=== PATIENT | female | born 1930 | race Asian ===

== ENCOUNTER 2017-06-07 23:52 | Inpatient (IN) | payer OTHER, MEDICAID ==
[~2017-06-07] VITALS: Ht 149.9 cm; Wt 54.4 kg
[2017-06-07 23:52] VITALS: BP_SYST 137
[~2017-06-07 23:52] MED LIST: CALC1TAB23 PO; METO-304; PRO40 PO
--- NOTE | 2017-06-07 23:56 | NUR ---
Patient to ER bed 8 to gown for evaluation. Side rails up. Report given to Miriam MCKINNEY.
--- NOTE | 2017-06-08 00:01 | NUR ---
Patient brought to ER by family C/O upper abdominal pain 07/10 for 1 day with nausea and vomiting. Denies diarrhea/constipation, afebrile, tender abdomen with palpation, dry mucous membranes, AAOx3, no signs of acute distress.
--- NOTE | 2017-06-08 00:10 | NUR ---
# 20 gauge angiocath placed to right forearm. Use of asceptic technique. Opsite placed over site. Blood return noted. Flushed with 10 cc of normal saline. No evidence of infiltration noted. Patient tolerated well.
[2017-06-08] MEDS ORDERED: NACL 0.9% 1,000 ML IV ONE (00:39)
[2017-06-08] MEDS ORDERED: MAG HYDROX/AL HYDROX/SIMETH 30 ML, BELLADONNA ALKALOIDS/PHENOBARB 10 ML, LIDOCAINE VISC... PO ONE ×3 (00:45)
[2017-06-08] MEDS ORDERED: KETOROLAC TROMETHAMINE 30 MG VIAL IVP ONE (00:45)
[2017-06-08] MEDS ORDERED: ONDANSETRON HCL 4 MG/2 ML VIAL IVP ONE (00:45)
--- NOTE | 2017-06-08 00:50 | NUR ---
Circus Rider at bedside for blood draw. Patient identified x2.
--- NOTE | 2017-06-08 01:04 | NUR ---
Patient states "i cant pee now" and refuses I&O catheter at this time. aware.
--- NOTE | 2017-06-08 01:10 | NUR ---
Patient off the unit via gurney for CT scan.
[2017-06-08 01:11] LABS: BASOPHILS # (AUTO) 0.1 K/uL (0.0-0.2); BASOPHILS % (AUTO) 1.7 % (0.0-2.0); EOSINOPHILS # (AUTO) 0.1 K/uL (0.0-0.4); EOSINOPHILS % (AUTO) 2.2 % (0.0-4.0); HEMOGLOBIN 12.3 g/dL (12.0-16.0); LYMPHOCYTES # (AUTO) 0.6 K/uL (1.0-5.5); LYMPHOCYTES % (AUTO) 10.5 % (20.5-51.5); MEAN CORPUSCULAR HEMOGLOBIN 32 pg (27-31); MEAN CORPUSCULAR HGB CONC 33 % (32-36); MEAN CORPUSCULAR VOLUME 96 fL (79.0-98.0); MONOCYTES # (AUTO) 0.4 K/uL (0.0-1.0); MONOCYTES % (AUTO) 5.8 % (1.7-9.3); NEUTROPHILS # (AUTO) 4.9 K/uL (1.8-7.7); NEUTROPHILS % (AUTO) 79.8 % (40.0-70.0); PLATELET COUNT (AUTO) 133 K/uL (130-430); RED BLOOD CELL COUNT(AUTO) 3.85 MIL/uL (4.2-6.2); RED CELL DISTRIBUTION WIDTH 12.6 % (9.0-15.0); WHITE BLOOD COUNT (AUTO) 6.1 K/uL (4.8-10.8)
--- NOTE | 2017-06-08 01:24 | NUR ---
Returns to ER department from CT. Placed on vehicle monitor technician, blood pressure machine and pulse oximeter.
--- NOTE | 2017-06-08 01:26 | NUR ---
Medicated per MD orders. IVF infusing with no s/s of infiltration at this time. No adverse reaction noted.
[2017-06-08 01:48] LABS: ANION GAP 7 (5-15); CALCIUM 8.3 mg/dL (8.4-11.0); CHLORIDE 109 mmol/L (98-107); CREATININE 0.74 mg/dL (0.55-1.30); GLUCOSE 121 mg/dL (70-99); POTASSIUM 4.5 mmol/L (3.5-5.1); SODIUM SERUM 142 mmol/L (136-145); UREA NITROGEN, BLOOD 18 mg/dL (8-21)
[2017-06-08 01:52] LABS: ALANINE AMINOTRANSFERASE 30 U/L (12-78); ALBUMIN 3.5 g/dL (3.4-4.8); AMYLASE 128 U/L (0-100); ASPARTATE AMINOTRANSFERASE 41 U/L (10-37); LIPASE 245 U/L (73-393); TOTAL BILIRUBIN 0.8 mg/dL (0.0-1.0)
[2017-06-08 02:02] LABS: BILIRUBIN,URINE 1+ (NEGATIVE); BLOOD, URINE 2+ (NEGATIVE); CLARITY/URINE CLEAR (CLEAR); COLOR,URINE YELLOW (YELLOW); GLUCOSE,URINE NEGATIVE (NEGATIVE); KETONES,URINE 1+ (NEGATIVE); LEUKOCYTE ESTERASE ,URINE NEGATIVE (NEGATIVE); NITRITE, URINE NEGATIVE (NEGATIVE); PH,URINE 5.5 (5.0-8.0); PROTEIN URINE 1+ (NEGATIVE); UROBILINOGEN,URINE 0.2 (0.2-1.0)
[2017-06-08 02:16] LABS: BACTERIA,URINE MODERATE /HPF (None Seen); WBC,URINE 0-3 /HPF (0-3)
[2017-06-08 02:17] LABS: URINE AMORPHOUS URATE 1+ /HPF (None Seen)
[2017-06-08 02:18] LABS: MUCUS,URINE 2+ /LPF (None Seen)
--- NOTE | 2017-06-08 02:36 | NUR ---
Medication reconciliation completed with information provided by - daughter states "all meds are the same". Any prior medication reconciliation on file was reviewed and corrected.
--- NOTE | 2017-06-08 02:40 | NUR ---
Patient will be admitted to care of Dr Stockton. Admitted to [facility] IN unit. Will go to room 135. Belongings list completed. Summary report printed. Report will be given at bedside.
[2017-06-08] MEDS ORDERED: ONDANSETRON HCL 4 MG/2 ML VIAL IVP PRN (02:45)
[2017-06-08] MEDS ORDERED: KETOROLAC TROMETHAMINE 15 MG VIAL IVP PRN (02:45)
--- NOTE | 2017-06-08 02:46 | NUR ---
Transfer to [facility]. IV present no sign or symptom of infiltration.
[2017-06-08 02:55] VITALS: BP_SYST 126
--- NOTE | 2017-06-08 02:55 | NUR ---
Admission Note Received patient from ER with diagnosis of Gastroenteritis. Initial Plan of Care discussed-patient verbalized understanding. Oriented to room, call light, pain management and safety.
--- NOTE | 2017-06-08 03:00 | NUR ---
INITIAL NOTE PT. RECEIVED IN BED, AAOX4. NO S/S OF SOB OR DISTRESS AT THIS TIME. DENIES PAIN OR NAUSEA. VSS. 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 IV ACCESS NOTED TO RIGHT WRIST. NO REDNESS OR SWELLING TO THE SITE. WILL HANG AND INFUSE IVF ORDERED. PT. NOTED TO AMBULATE WITH STEADY GAIT. WALKED TO THE RESTROOM WITH ASSISTANCE FROM DENNIS SALOMON. PT VOIDED. ASSISTED BACK TO BED AND IN A COMFORTABLE POSITION. PROVIDED PT. WITH BLANKETS FOR COMFORT. SKIN INTACT. PLAN OF CARE HAS BEEN DISCUSSED WITH THE PT. ENCOURAGED CALL FOR ASSISTANCE USING CALL LIGHT. VERBALIZES UNDERSTANDING. WILL CONTINUE TO MONITOR FOR ANY CHANGES. SAFETY AND FALL PRECAUTIONS IN PLACE. CALL LIGHT IN REACH. BED ALARM ON.
[2017-06-08] MEDS: LR 1,000 ML IV SCH ×2 (03:11→13:23)
[2017-06-08 04:28] VITALS: BP_SYST 124
--- NOTE | 2017-06-08 04:38 | NUR ---
ROUNDS PT. RESTING IN BED WITH EYES CLOSED. CHEST RISE AND FALL NOTED. NO SIGNS OF ACUTE DISTRESS. WILL CONTINUE TO MONITOR FOR CHANGES. SAFETY AND FALL PRECAUTIONS IN PLACE. CALL LIGHT IN REACH.
--- NOTE | 2017-06-08 06:31 | NUR ---
CLOSING NOTE PT. RESTING IN BED WITH EYES CLOSED. CHEST RISE AND FALL NOTED. NO S/S OF SOB OR DISTRESS.NO FACIAL GRIMACING INDICATING PAIN. ALL NEEDS MET THIS SHIFT. SAFETY AND FALL PRECAUTIONS WERE MAINTAINED. WILL ENDORSE CARE TO AM NURSE. ALL LIGHT IN REACH.
--- NOTE | 2017-06-08 08:42 | NUR ---
OPENING NOTE RECEIVED REPORT FROM TOOTH CLERK RN. PATIENT RESTING COMFORTABLY. NO COMPLAINTS OF PAIN AT THIS TIME. PATIENT HAS NO NOTABLE SIGNS OF DISTRESS AT THIS TIME. PATIENTS BED IN LOWEST POSITION, CALL LIGHT WITHIN REACH, PATIENT BELONGINGS WITHIN REACH, AND SIDE RAILS ARE UP FOR SAFETY. WILL CONTINUE TO MONITOR PATIENT FOR CHANGES IN STATUS. PATIENT MORNING MEDICATIONS GIVEN. PATIENT WALKED TO RR, STEADY GAIT. ENCOURAGED TO CALL WHEN NEEDS ARISE.
[2017-06-08 08:54] VITALS: BP_SYST 130
[2017-06-08] MEDS: PANTOPRAZOLE SODIUM 40 MG TAB PO SCH (09:41)
[2017-06-08] MEDS: METOPROLOL SUCCINATE 25 MG TAB.SR.24H (TOPROL XL) PO SCH ×2 (09:41→21:19)
[2017-06-08] MEDS ORDERED: BISACODYL 10 MG/SUPPOSITORY RC PRN (11:15)
[2017-06-08] MEDS ORDERED: BISACODYL 10 MG/SUPPOSITORY RC ONE (11:15)
--- NOTE | 2017-06-08 11:18 | NUR ---
MD DR. MCKENNA AT BEDSIDE. PATIENT HAS DISTENDED ABDOMEN, COMPLAINTS OF PAIN AFTER EATING CLEAR LIQUID DIET. MD ORDERS. DULCOLAX SUPPOSITORY; SMALL BOWEL FOLLOW THROUGH; AND GI CONSULT. WE WILL KEEP PATIENT WITH CLEAR LIQUID DIET. WILL CONTINUE TO MONITOR PATIENT. PATIENTS BED IN LOWEST POSITION, CALL LIGHT WITHIN REACH, IV RUNNING PER MD ORDERS, AND SIDE RAILS ARE UP FOR COMFORT.
--- NOTE | 2017-06-08 11:56 | NUR ---
GI CONSULT: DR GRIMM Consult was called, RE: vomitting JEREMY Miranda
[2017-06-08] MEDS ORDERED: GASTROGRAFIN 120 ML ONE (12:23)
[2017-06-08 12:32] VITALS: BP_SYST 129
--- NOTE | 2017-06-08 13:05 | NUR ---
1200 NOTE PATIENT RESTING COMFORTABLY. NO COMPLAINTS OF PAIN AT THIS TIME. PATIENT HAS NO NOTABLE SIGNS OF DISTRESS AT THIS TIME. PATIENT GIVEN SUPPOSITORY FOR BOWEL MOVEMENT. CURRENTLY HAVING EXAM: SMALL BOWEL FOLLOW THROUGH. PATIENT ABLE TO AMBULATE TO BATHROOM. HER DAUGHTER CALLED AND GAVE INFORMATION REGARDING HOME MEDICATIONS. ENTERED INTO Blink for iPhone and Android BY RN. PATIENTS BED IN LOWEST POSITION, CALL LIGHT WITHIN REACH, PATIENT BELONGINGS WITHIN REACH, AND SIDE RAILS ARE UP FOR SAFETY. WILL CONTINUE TO MONITOR PATIENT FOR CHANGES IN STATUS.
[2017-06-08] MEDS ORDERED: METO25TA3 PO (15:21)
[2017-06-08] MEDS ORDERED: ALEN70TA51 PO (15:21)
[2017-06-08] MEDS ORDERED: ASPI-1063 PO (15:21)
[2017-06-08] MEDS ORDERED: MULT-1159 PO (15:21)
[2017-06-08] MEDS ORDERED: CALC1TAB3 PO (15:21)
[2017-06-08] MEDS ORDERED: POTA-118 PO (15:21)
--- NOTE | 2017-06-08 15:23 | NUR ---
MD CALL/1400 NOTE PATIENT RESTING COMFORTABLY. NO COMPLAINTS OF PAIN AT THIS TIME. PATIENT HAS HAD RELIEF AFTER BOWEL MOVEMENT, SUPPOSITORY RELIEVED STOOL. PATIENT CURRENTLY HAVING SMALL BOWEL FOLLOW THROUGH. SPOKE WITH DR. GRIMM REGARDING PATIENT STATUS AND UPDATE REGARDING CONSULTATION. STATES, PLEASE HAVE PATIENT REMAIN ON CLEAR LIQUIDS. HE WILL SEE THE PATIENT TOMORROW 06/09/17. PATIENTS BED IN LOWEST POSITION, CALL LIGHT WITHIN REACH, PATIENT BELONGINGS WITHIN REACH, AND SIDE RAILS ARE UP FOR SAFETY. WILL CONTINUE TO MONITOR PATIENT FOR CHANGES IN STATUS.
[2017-06-08 16:10] VITALS: BP_SYST 132
--- NOTE | 2017-06-08 16:16 | NUR ---
1600 NOTE PATIENT RESTING COMFORTABLY. NO COMPLAINTS OF PAIN AT THIS TIME. PATIENT HAS NO NOTABLE SIGNS OF DISTRESS AT THIS TIME. PATIENT GIVEN SUPPOSITORY FOR BOWEL MOVEMENT. CURRENTLY HAVING EXAM: SMALL BOWEL FOLLOW THROUGH. PATIENT ABLE TO AMBULATE TO BATHROOM. PATIENT DECREASE PAIN ASSOCIATED WITH PASSAGE OF STOOL. PATIENTS BED IN LOWEST POSITION, CALL LIGHT WITHIN REACH, PATIENT BELONGINGS WITHIN REACH, AND SIDE RAILS ARE UP FOR SAFETY. WILL CONTINUE TO MONITOR PATIENT FOR CHANGES IN STATUS.
--- NOTE | 2017-06-08 17:52 | NUR ---
1800/CLOSING NOTE AWAITING TO GIVE REPORT TO MANUFACTURING ENGINEER MACHINING NURSE. PATIENT RESTING COMFORTABLY. NO COMPLAINTS OF PAIN AT THIS TIME. PATIENT HAS NO NOTABLE SIGNS OF DISTRESS AT THIS TIME. PATIENT GIVEN SUPPOSITORY FOR BOWEL MOVEMENT. PATIENT HAS HAD SMALL BOWEL FOLLOW THROUGH, TO BE SEEN BY GI TOMORROW 06/09/17. PATIENT ABLE TO AMBULATE TO BATHROOM. PATIENT DECREASE PAIN ASSOCIATED WITH PASSAGE OF STOOL. PATIENTS BED IN LOWEST POSITION, CALL LIGHT WITHIN REACH, PATIENT BELONGINGS WITHIN REACH, AND SIDE RAILS ARE UP FOR SAFETY. WILL CONTINUE TO MONITOR PATIENT FOR CHANGES IN STATUS.
[2017-06-08 20:30] VITALS: BP_SYST 132
--- NOTE | 2017-06-08 21:15 | NUR ---
Patient awake assist out of bed to rest room on room air 02 SAT 96 % chest movement shallow also symmetrical unlabored .
--- NOTE | 2017-06-08 23:58 | NUR ---
Hourly Rounding patient resting verbally responsive , encourage position change skin dry warm call waters with patient .
--- NOTE | 2017-06-09 00:01 | NUR ---
TOPROLOL XL 25 MG PO administer as ordered for HYPERTENSION , patient noted to have a pacemaker in left chest chest wall / .
[2017-06-09 00:23] VITALS: BP_SYST 118
--- NOTE | 2017-06-09 00:43 | NUR ---
Patient awake assist out of bed to rest room skin dry warm no SOB , verbally indicative , fall measures implemented frequent monitor for safety / .
--- NOTE | 2017-06-09 01:47 | NUR ---
Patient resting respirations regular also unlabored bed to low position safety measures effective / .
[2017-06-09 04:08] VITALS: BP_SYST 142
--- NOTE | 2017-06-09 05:28 | NUR ---
Hourly Rounding Patient resting is verbally responsive , bed to low position call waters with PT , no complaints made assist as needed / .
[2017-06-09] MEDS: LR 1,000 ML IV SCH ×2 (06:33→09:35)
[2017-06-09 07:01] LABS: BASOPHILS % (AUTO) 0.6 % (0.0-2.0); EOSINOPHILS # (AUTO) 0.2 K/uL (0.0-0.4); HEMATOCRIT 35.6 % (36-48); HEMOGLOBIN 11.7 g/dL (12.0-16.0); LYMPHOCYTES # (AUTO) 0.9 K/uL (1.0-5.5); LYMPHOCYTES % (AUTO) 22.4 % (20.5-51.5); MEAN CORPUSCULAR HEMOGLOBIN 32 pg (27-31); MEAN CORPUSCULAR HGB CONC 33 % (32-36); MEAN CORPUSCULAR VOLUME 97 fL (79.0-98.0); MONOCYTES # (AUTO) 0.4 K/uL (0.0-1.0); MONOCYTES % (AUTO) 9.4 % (1.7-9.3); NEUTROPHILS # (AUTO) 2.3 K/uL (1.8-7.7); NEUTROPHILS % (AUTO) 62.6 % (40.0-70.0); PLATELET COUNT (AUTO) 105 K/uL (130-430); RED BLOOD CELL COUNT(AUTO) 3.67 MIL/uL (4.2-6.2); RED CELL DISTRIBUTION WIDTH 12.8 % (9.0-15.0)
[2017-06-09 07:06] LABS: WHITE BLOOD COUNT (AUTO) 3.8 K/uL (4.8-10.8)
[2017-06-09 07:14] LABS: ALANINE AMINOTRANSFERASE 32 U/L (12-78); ALBUMIN 2.9 g/dL (3.4-4.8); ANION GAP 8 (5-15); ASPARTATE AMINOTRANSFERASE 48 U/L (10-37); CALCIUM 7.4 mg/dL (8.4-11.0); CHLORIDE 113 mmol/L (98-107); CREATININE 0.91 mg/dL (0.55-1.30); GLUCOSE 78 mg/dL (70-99); POTASSIUM 3.6 mmol/L (3.5-5.1); SODIUM SERUM 145 mmol/L (136-145); TOTAL BILIRUBIN 0.9 mg/dL (0.0-1.0); UREA NITROGEN, BLOOD 17 mg/dL (8-21)
--- NOTE | 2017-06-09 08:12 | NUR ---
OPENING NOTE/0800: RECEIVED REPORT FROM SCRAP WHEELER NURSE. PATIENT RESTING COMFORTABLY. PATIENT HAS NO NOTABLE SIGNS OF DISTRESS AT THIS TIME. PATIENT IS ALERT AND ORIENTED. PATIENTS BED IN LOWEST POSITION, CALL LIGHT WITHIN REACH, AND SIDE RAILS ARE UP FOR SAFETY. PATIENT AMBULATES STEADILY TO BATHROOM. REFUSES IV FLUIDS AT THIS TIME. WILL CONTINUE TO MONITOR PATIENT FOR CHANGES IN STATUS. PATIENT ENCOURAGED TO CALL WHEN NEEDS ARISE.
[2017-06-09] MEDS: METOPROLOL SUCCINATE 25 MG TAB.SR.24H (TOPROL XL) PO SCH (09:41)
[2017-06-09] MEDS: PANTOPRAZOLE SODIUM 40 MG TAB PO SCH (09:41)
--- NOTE | 2017-06-09 10:55 | NUR ---
1000 NOTE: PATIENT RESTING COMFORTABLY. PATIENT HAS NO NOTABLE SIGNS OF DISTRESS AT THIS TIME. PATIENT IS ALERT AND ORIENTED. PATIENT SEEN BY DR. MCKENNA, STATES SHE FEELS BETTER, AND WOULD LIKE REAL FOOD FOR LUNCH. ORDERS PLACED BY MD FOR [facility] SOFT DIET LUNCH, AND OKAY TO DISCHARGE IF TOLERATED. PATIENT IV FLUIDS DISCONTINUED. WILL CALL FAMILY REGARDING POSSIBLE DISCHARGE. PATIENTS BED IN LOWEST POSITION, CALL LIGHT WITHIN REACH, AND SIDE RAILS ARE UP FOR SAFETY. PATIENT AMBULATES STEADILY TO BATHROOM. WILL CONTINUE TO MONITOR PATIENT FOR CHANGES IN STATUS. PATIENT ENCOURAGED TO CALL WHEN NEEDS ARISE.
--- NOTE | 2017-06-09 12:34 | NUR ---
NOTE SPOKE WITH FAMILY, GRANDSON, EMILIANO REGARDING POSSIBLE DISCHARGE. FAMILY WILL NOT BE AVAILABLE TO TAKE PATIENT HOME UNTIL 1430.
--- NOTE | 2017-06-09 12:40 | NUR ---
1200 NOTE: PATIENT RESTING COMFORTABLY. PATIENT HAS NO NOTABLE SIGNS OF DISTRESS AT THIS TIME. PATIENT HAS HAD LUNCH, TOLERATED WELL. CALLED FAMILY REGARDING POSSIBLE DISCHARGE, THEY WILL BE AVAILABLE AFTER 1430 TO PICK PATIENT UP. PATIENTS BED IN LOWEST POSITION, CALL LIGHT WITHIN REACH, AND SIDE RAILS ARE UP FOR SAFETY. PATIENT AMBULATES STEADILY TO BATHROOM. WILL CONTINUE TO MONITOR PATIENT FOR CHANGES IN STATUS. PATIENT ENCOURAGED TO CALL WHEN NEEDS ARISE.
[2017-06-09 13:07] VITALS: BP_SYST 144
[2017-06-09 14:30] VITALS: BP_SYST 144
--- NOTE | 2017-06-09 14:55 | NUR ---
D/C Patient Patient given medication reconciliation form and D/C instructions. Exit Care provided. Patient verbalized understanding. MD discussed with patient the results and treatment provided. Ambulatory with steady gait for discharge to home. Patient in stable condition, ID band removed. IV catheter removed, intact and dressing applied, no active bleeding. Rx of given. All belongings sent with patient. Patient transport provided by patient family in personal vehicle.
--- NOTE | 2017-06-16 12:04 | NUR ---
Discharge Follow Up Phone Calls: Electrical Helper called and left voice mails for pt ([phone]) on 06/11/17, 06/13/17, and 06/16/17. Electrical Helper contact information was provided and pt was encouraged to call back with any needs or concerns. Electrical Helper will continue to remain available for pt to call back, but no further follow up phone calls will be made at this time.
== END 2017-06-09 14:55 | disposition home or self-care (01) | DRG 389 ==
LOC: SED 23:52 → SMU 06-08 02:30
PROVIDERS: ADMIT Internal Medicine; ATTEND Internal Medicine
DX: K56.41 Fecal impaction (principal); E44.0 Moderate protein-calorie malnutrition; I48.2 Chronic atrial fibrillation; E86.0 Dehydration; I10 Essential (primary) hypertension; Z95.0 Presence of cardiac pacemaker; Z90.49 Acquired absence of other specified parts of digestive tract; Z79.899 Other long term (current) drug therapy
CPT/HCPCS: 36415; 74250-TC; 80053; 81000-TC; 82150-TC; 83690-TC; 85025; 93005; 96361; 96374; 96375; 99285; J1885; J2001; J2405; J7030; J7120; Q9963

== ENCOUNTER 2018-05-13 16:27 | Outpatient (CLI) | payer OTHER, MEDICAID ==
[~2018-05-13 16:27] MED LIST changes: +ALEN70TA51 PO; -CALC1TAB23 PO; +CALC1TAB3 PO; -METO-304; +MULT-1159 PO; -PRO40 PO; +metoprolol PO
[2018-05-13 16:52] LABS: BASOPHILS % (AUTO) 0.8 % (0.0-2.0); EOSINOPHILS # (AUTO) 0.2 K/uL (0.0-0.4); EOSINOPHILS % (AUTO) 6.4 % (0.0-4.0); HEMATOCRIT 37.1 % (36-48); HEMOGLOBIN 12.5 g/dL (12.0-16.0); LYMPHOCYTES % (AUTO) 27.1 % (20.5-51.5); MEAN CORPUSCULAR HEMOGLOBIN 33 pg (27-31); MEAN CORPUSCULAR HGB CONC 34 % (32-36); MEAN CORPUSCULAR VOLUME 98 fL (79.0-98.0); MONOCYTES # (AUTO) 0.4 K/uL (0.0-1.0); MONOCYTES % (AUTO) 11.5 % (1.7-9.3); NEUTROPHILS # (AUTO) 2.1 K/uL (1.8-7.7); NEUTROPHILS % (AUTO) 54.2 % (40.0-70.0); RED BLOOD CELL COUNT(AUTO) 3.79 MIL/uL (4.2-6.2); RED CELL DISTRIBUTION WIDTH 13.6 % (9.0-15.0); WHITE BLOOD COUNT (AUTO) 3.7 K/uL (4.8-10.8)
[2018-05-13 17:09] LABS: PLATELET COUNT (AUTO) 126 K/uL (130-430)
[2018-05-13 17:26] LABS: ANION GAP 5 (5-15); CALCIUM 9.1 mg/dL (8.4-11.0); CHLORIDE 106 mmol/L (98-107); CREATININE 1.04 mg/dL (0.55-1.30); GLUCOSE 82 mg/dL (70-99); POTASSIUM 5.2 mmol/L (3.5-5.1); SODIUM SERUM 140 mmol/L (136-145); UREA NITROGEN, BLOOD 22 mg/dL (8-21)
[2018-05-13 17:41] LABS: ALANINE AMINOTRANSFERASE 27 U/L (12-78); ALBUMIN 3.5 g/dL (3.4-4.8); ASPARTATE AMINOTRANSFERASE 41 U/L (10-37); THYROID STIMULATING HORMONE 3.42 uIu/mL (0.34-4.82); TOTAL BILIRUBIN 0.6 mg/dL (0.0-1.0)
== END 2018-05-13 18:38 | disposition home or self-care (01) ==
LOC: SLB 16:27
PROVIDERS: ATTEND Internal Medicine
DX: I11.0 Hypertensive heart disease with heart failure (principal); I50.9 Heart failure, unspecified; E03.9 Hypothyroidism, unspecified
CPT/HCPCS: 36415; 80053; 84443-TC; 85025

== ENCOUNTER 2018-11-17 09:08 | Inpatient (IN) | payer OTHER, MEDICAID ==
[~2018-11-17] VITALS: Ht 149.9 cm; Wt 54.4 kg
[2018-11-17 09:10] VITALS: BP_SYST 121
[2018-11-17] MEDS ORDERED: MORPHINE 4 MG/ML INJ. SYRINGE IVP ONE (09:45)
[2018-11-17] MEDS ORDERED: ASPIRIN 81 MG TAB.CHEW PO ONE (09:45)
[2018-11-17 09:56] LABS: BASOPHILS % (AUTO) 0.3 % (0.0-2.0); EOSINOPHILS # (AUTO) 0.3 K/uL (0.0-0.4); EOSINOPHILS % (AUTO) 6.9 % (0.0-4.0); HEMATOCRIT 37.6 % (36-48); HEMOGLOBIN 12.2 g/dL (12.0-16.0); LYMPHOCYTES # (AUTO) 0.7 K/uL (1.0-5.5); LYMPHOCYTES % (AUTO) 14.4 % (20.5-51.5); MEAN CORPUSCULAR HEMOGLOBIN 32 pg (27-31); MEAN CORPUSCULAR HGB CONC 33 % (32-36); MEAN CORPUSCULAR VOLUME 99 fL (79.0-98.0); MONOCYTES # (AUTO) 0.3 K/uL (0.0-1.0); MONOCYTES % (AUTO) 6.3 % (1.7-9.3); NEUTROPHILS # (AUTO) 3.5 K/uL (1.8-7.7); NEUTROPHILS % (AUTO) 72.1 % (40.0-70.0); PLATELET COUNT (AUTO) 101 K/uL (130-430); RED BLOOD CELL COUNT(AUTO) 3.81 MIL/uL (4.2-6.2); RED CELL DISTRIBUTION WIDTH 13.8 % (9.0-15.0); WHITE BLOOD COUNT (AUTO) 4.8 K/uL (4.8-10.8)
[2018-11-17 10:05] LABS: ANION GAP 9 (5-15); CALCIUM 8.6 mg/dL (8.4-11.0); CHLORIDE 108 mmol/L (98-107); CREATININE 0.83 mg/dL (0.55-1.30); GLUCOSE 98 mg/dL (70-99); SODIUM SERUM 144 mmol/L (136-145); UREA NITROGEN, BLOOD 20 mg/dL (8-21)
[2018-11-17] MEDS ORDERED: LEVO25TA7 PO (10:06)
[2018-11-17] MEDS ORDERED: CHOL20004 PO (10:06)
[2018-11-17] MEDS ORDERED: CARV6.2554 PO (10:06)
[2018-11-17 10:14] LABS: ALANINE AMINOTRANSFERASE 34 U/L (12-78); ALBUMIN 3.4 g/dL (3.4-4.8); ASPARTATE AMINOTRANSFERASE 56 U/L (10-37); TOTAL BILIRUBIN 1.1 mg/dL (0.0-1.0)
[2018-11-17 11:00] VITALS: BP_SYST 129
[2018-11-17 11:21] VITALS: BP_SYST 119
[2018-11-17] MEDS: ONDANSETRON HCL 4 MG/2 ML VIAL IVP PRN ×2 (13:20→16:56)
[2018-11-17] MEDS ORDERED: KCL 20 mEq in D5/0.45NS 1000mL 1,000 ML IV SCH (15:00)
[2018-11-17 16:00] VITALS: BP_SYST 135
[2018-11-17] MEDS: MECLIZINE HCL 25 MG TABLET (ANITVERT) PO SCH ×2 (16:50→20:18)
[2018-11-17] MEDS: CARVEDILOL 6.25 MG TABLET (COREG) PO SCH (20:18)
[2018-11-17 20:20] VITALS: BP_SYST 122
[2018-11-18 00:16] VITALS: BP_SYST 120
[2018-11-18] MEDS: LEVOTHYROXINE SODIUM 0.025 MG TABLET PO SCH (06:19)
[2018-11-18 07:30] LABS: ANION GAP 7 (5-15); CALCIUM 7.7 mg/dL (8.4-11.0); CHLORIDE 109 mmol/L (98-107); CREATININE 0.83 mg/dL (0.55-1.30); GLUCOSE 85 mg/dL (70-99); POTASSIUM 3.8 mmol/L (3.5-5.1); SODIUM SERUM 143 mmol/L (136-145); UREA NITROGEN, BLOOD 20 mg/dL (8-21)
[2018-11-18 07:44] LABS: ALANINE AMINOTRANSFERASE 31 U/L (12-78); ALBUMIN 2.7 g/dL (3.4-4.8); ASPARTATE AMINOTRANSFERASE 63 U/L (10-37); THYROID STIMULATING HORMONE 1.93 uIu/mL (0.36-3.74); TOTAL BILIRUBIN 0.9 mg/dL (0.0-1.0)
[2018-11-18 08:06] VITALS: BP_SYST 111; BP_SYST 114
[2018-11-18 08:16] LABS: BASOPHILS % (AUTO) 0.7 % (0.0-2.0); EOSINOPHILS # (AUTO) 0.2 K/uL (0.0-0.4); EOSINOPHILS % (AUTO) 6.6 % (0.0-4.0); HEMATOCRIT 32.5 % (36-48); HEMOGLOBIN 10.7 g/dL (12.0-16.0); LYMPHOCYTES # (AUTO) 1.1 K/uL (1.0-5.5); LYMPHOCYTES % (AUTO) 32.6 % (20.5-51.5); MEAN CORPUSCULAR HEMOGLOBIN 32 pg (27-31); MEAN CORPUSCULAR HGB CONC 33 % (32-36); MEAN CORPUSCULAR VOLUME 98 fL (79.0-98.0); MONOCYTES # (AUTO) 0.5 K/uL (0.0-1.0); MONOCYTES % (AUTO) 13.2 % (1.7-9.3); NEUTROPHILS # (AUTO) 1.7 K/uL (1.8-7.7); NEUTROPHILS % (AUTO) 46.9 % (40.0-70.0); RED BLOOD CELL COUNT(AUTO) 3.31 MIL/uL (4.2-6.2); RED CELL DISTRIBUTION WIDTH 13.6 % (9.0-15.0)
[2018-11-18 08:20] LABS: WHITE BLOOD COUNT (AUTO) 3.5 K/uL (4.8-10.8)
[2018-11-18] MEDS: MECLIZINE HCL 25 MG TABLET (ANITVERT) PO SCH ×3 (09:14→22:15)
[2018-11-18] MEDS: CARVEDILOL 6.25 MG TABLET (COREG) PO SCH ×2 (09:15→22:15)
[2018-11-18 09:43] LABS: CHOLESTEROL 139 mg/dL (<200); HDL CHOLESTEROL 61 mg/dL (>55); LDL CHOLESTEROL 68 mg/dL (<100); PLATELET COUNT (AUTO) 94 K/uL (130-430); TRIGLYCERIDES 50 mg/dL (30-150)
[2018-11-18 12:01] VITALS: BP_SYST 101
[2018-11-18 16:18] VITALS: BP_SYST 115
[2018-11-18] MEDS: RIVAROXABAN 15 MG TABLET PO SCH (18:09)
[2018-11-18 20:00] VITALS: BP_SYST 139
[2018-11-19 01:21] VITALS: BP_SYST 131
[2018-11-19] MEDS: LEVOTHYROXINE SODIUM 0.025 MG TABLET PO SCH (05:55)
[2018-11-19 06:53] LABS: ANION GAP 10 (5-15); CALCIUM 7.9 mg/dL (8.4-11.0); CHLORIDE 109 mmol/L (98-107); CREATININE 0.94 mg/dL (0.55-1.30); GLUCOSE 92 mg/dL (70-99); POTASSIUM 4.1 mmol/L (3.5-5.1); SODIUM SERUM 143 mmol/L (136-145); UREA NITROGEN, BLOOD 22 mg/dL (8-21)
[2018-11-19 06:54] LABS: BASOPHILS % (AUTO) 0.7 % (0.0-2.0); EOSINOPHILS # (AUTO) 0.4 K/uL (0.0-0.4); EOSINOPHILS % (AUTO) 8.5 % (0.0-4.0); HEMATOCRIT 36.6 % (36-48); HEMOGLOBIN 12.3 g/dL (12.0-16.0); LYMPHOCYTES # (AUTO) 1.1 K/uL (1.0-5.5); LYMPHOCYTES % (AUTO) 22.7 % (20.5-51.5); MEAN CORPUSCULAR HEMOGLOBIN 33 pg (27-31); MEAN CORPUSCULAR HGB CONC 34 % (32-36); MEAN CORPUSCULAR VOLUME 98 fL (79.0-98.0); MONOCYTES # (AUTO) 0.5 K/uL (0.0-1.0); MONOCYTES % (AUTO) 9.9 % (1.7-9.3); NEUTROPHILS % (AUTO) 58.2 % (40.0-70.0); PLATELET COUNT (AUTO) 99 K/uL (130-430); RED BLOOD CELL COUNT(AUTO) 3.76 MIL/uL (4.2-6.2); RED CELL DISTRIBUTION WIDTH 13.2 % (9.0-15.0)
[2018-11-19 07:02] LABS: ALANINE AMINOTRANSFERASE 34 U/L (12-78); ALBUMIN 2.9 g/dL (3.4-4.8); ASPARTATE AMINOTRANSFERASE 61 U/L (10-37); TOTAL BILIRUBIN 0.8 mg/dL (0.0-1.0)
[2018-11-19 08:20] VITALS: BP_SYST 145
[2018-11-19] MEDS: MECLIZINE HCL 25 MG TABLET (ANITVERT) PO SCH ×2 (08:56→15:04)
[2018-11-19] MEDS: CARVEDILOL 6.25 MG TABLET (COREG) PO SCH (08:57)
[2018-11-19] MEDS ORDERED: FUROSEMIDE 20 MG TABLET PO SCH (09:00)
[2018-11-19] MEDS ORDERED: ASPIRIN 81 MG TAB.CHEW PO SCH (09:00)
[2018-11-19 12:00] VITALS: BP_SYST 124
[2018-11-19] MEDS ORDERED: ASPI-1153 PO (15:44)
[2018-11-19] MEDS ORDERED: FURO-150 PO (15:45)
[2018-11-19] MEDS ORDERED: RIVA15TA PO (15:46)
[2018-11-19 15:54] VITALS: BP_SYST 124
[2018-11-19] MEDS: RIVAROXABAN 15 MG TABLET PO SCH (15:57)
[2018-11-19 16:00] VITALS: BP_SYST 153
== END 2018-11-19 19:10 | disposition home or self-care (01) | DRG 280 ==
LOC: SED 09:08 → STU 10:39
PROVIDERS: ADMIT Family Medicine; ATTEND Family Medicine
DX: I21.4 Non-ST elevation (NSTEMI) myocardial infarction (principal); E43 Unspecified severe protein-calorie malnutrition; I42.0 Dilated cardiomyopathy; I50.22 Chronic systolic (congestive) heart failure; D68.59 Other primary thrombophilia; I48.2 Chronic atrial fibrillation; E03.9 Hypothyroidism, unspecified; I25.10 Atherosclerotic heart disease of native coronary artery without angina pectoris; I11.0 Hypertensive heart disease with heart failure; F03.90 Unspecified dementia, unspecified severity, without behavioral disturbance, psychotic disturbance, mood disturbance, and anxiety; I08.1 Rheumatic disorders of both mitral and tricuspid valves; Z90.49 Acquired absence of other specified parts of digestive tract; Z95.0 Presence of cardiac pacemaker; Z79.899 Other long term (current) drug therapy; Z79.82 Long term (current) use of aspirin; Z79.01 Long term (current) use of anticoagulants; Z68.24 Body mass index [BMI] 24.0-24.9, adult
CPT/HCPCS: 36415; 70450-TC; 71045; 80053; 80061; 83735-TC; 83880; 84443-TC; 84484; 85025; 90656; 93005; 96374; 99285; G0378; J2270; J2405; J8597

== ENCOUNTER 2019-01-30 14:35 | Inpatient (IN) | payer OTHER, MEDICAID ==
[~2019-01-30] VITALS: Ht 149.9 cm; Wt 50.0 kg
[~2019-01-30 14:35] MED LIST changes: -ALEN70TA51 PO; +ASPI-1153 PO; -CALC1TAB3 PO; +CARV6.2554 PO; +CHOL20004 PO; +FURO-150 PO; +LEVO25TA7 PO; +RIVA15TA PO
[2019-01-30 15:17] VITALS: BP_SYST 121
[2019-01-30] MEDS ORDERED: NACL 0.9% 1,000 ML IV ONE (15:29)
[2019-01-30] MEDS ORDERED: MORPHINE 4 MG/ML INJ. SYRINGE IVP ONE (15:30)
[2019-01-30] MEDS ORDERED: COR6.25 PO (15:34)
[2019-01-30] MEDS ORDERED: CYAN100010 PO (15:34)
[2019-01-30] MEDS ORDERED: VITD2000 PO (15:34)
[2019-01-30] MEDS ORDERED: MULT-1200 PO (15:34)
[2019-01-30] MEDS ORDERED: ALEN10TA6 PO (15:34)
[2019-01-30] MEDS ORDERED: CA C-2 PO (15:34)
[2019-01-30] MEDS ORDERED: FURO-150 PO (15:34)
[2019-01-30] MEDS ORDERED: RIVA10TA PO (15:34)
[2019-01-30] MEDS ORDERED: LEVO25TA2 PO (15:34)
[2019-01-30] MEDS ORDERED: FUROSEMIDE 40 MG/4 ML VIAL IVP ONE (15:45)
[2019-01-30 17:21] LABS: ANION GAP 9 (5-15); CALCIUM 8.9 mg/dL (8.4-11.0); CHLORIDE 107 mmol/L (98-107); CREATININE 0.79 mg/dL (0.55-1.30); GLUCOSE 73 mg/dL (70-99); POTASSIUM 3.9 mmol/L (3.5-5.1); SODIUM SERUM 140 mmol/L (136-145); UREA NITROGEN, BLOOD 17 mg/dL (8-21)
[2019-01-30 17:22] LABS: INR 0.9 (0.8-1.2); PROTHROMBIN TIME 9.7 SECS (9.5-12.5)
[2019-01-30 17:27] LABS: ALANINE AMINOTRANSFERASE 51 U/L (12-78); ALBUMIN 3.6 g/dL (3.4-4.8); AMYLASE 111 U/L (0-100); ASPARTATE AMINOTRANSFERASE 78 U/L (10-37); LIPASE 332 U/L (73-393); TOTAL BILIRUBIN 1.1 mg/dL (0.0-1.0)
[2019-01-30 17:45] LABS: HEMATOCRIT 38.8 % (36-48); HEMOGLOBIN 12.5 g/dL (12.0-16.0); MEAN CORPUSCULAR HEMOGLOBIN 32 pg (27-31); MEAN CORPUSCULAR VOLUME 100 fL (79.0-98.0); WHITE BLOOD COUNT (AUTO) 3.8 K/uL (4.8-10.8)
[2019-01-30 17:46] LABS: BASOPHILS % (AUTO) 1.1 % (0.0-2.0); EOSINOPHILS # (AUTO) 0.3 K/uL (0.0-0.4); EOSINOPHILS % (AUTO) 8.1 % (0.0-4.0); LYMPHOCYTES # (AUTO) 0.8 K/uL (1.0-5.5); LYMPHOCYTES % (AUTO) 21.7 % (20.5-51.5); MEAN CORPUSCULAR HGB CONC 32 % (32-36); MONOCYTES # (AUTO) 0.4 K/uL (0.0-1.0); MONOCYTES % (AUTO) 11.5 % (1.7-9.3); NEUTROPHILS # (AUTO) 2.2 K/uL (1.8-7.7); NEUTROPHILS % (AUTO) 57.6 % (40.0-70.0); PLATELET COUNT (AUTO) 103 K/uL (130-430)
[2019-01-30 17:53] LABS: BILIRUBIN,URINE NEGATIVE (NEGATIVE); BLOOD, URINE 1+ (NEGATIVE); CLARITY/URINE CLEAR (CLEAR); COLOR,URINE YELLOW (YELLOW); GLUCOSE,URINE NEGATIVE (NEGATIVE); KETONES,URINE TRACE (NEGATIVE); LEUKOCYTE ESTERASE ,URINE NEGATIVE (NEGATIVE); NITRITE, URINE NEGATIVE (NEGATIVE); PROTEIN URINE 1+ (NEGATIVE); UROBILINOGEN,URINE 0.2 (0.2-1.0)
[2019-01-30 18:04] LABS: WBC,URINE 0-3 /HPF (0-3)
[2019-01-30 18:05] LABS: BACTERIA,URINE RARE /HPF (None Seen); MUCUS,URINE None Seen /LPF (None Seen)
[2019-01-30 19:10] VITALS: BP_SYST 156
[2019-01-30 20:15] VITALS: BP_SYST 118
[2019-01-30] MEDS ORDERED: ALENDRONATE SODIUM 10 MG TABLET (FOSAMAX) PO SCH (23:30)
[2019-01-31] MEDS: CARVEDILOL 6.25 MG TABLET (COREG) PO SCH ×2 (00:25→08:00)
[2019-01-31 01:00] LABS: BILIRUBIN,URINE NEGATIVE (NEGATIVE); BLOOD, URINE 3+ (NEGATIVE); CLARITY/URINE CLEAR (CLEAR); COLOR,URINE YELLOW (YELLOW); GLUCOSE,URINE NEGATIVE (NEGATIVE); KETONES,URINE NEGATIVE (NEGATIVE); LEUKOCYTE ESTERASE ,URINE NEGATIVE (NEGATIVE); NITRITE, URINE NEGATIVE (NEGATIVE); PH,URINE 5.5 (5.0-8.0); PROTEIN URINE NEGATIVE (NEGATIVE); UROBILINOGEN,URINE 0.2 (0.2-1.0)
[2019-01-31 01:21] LABS: RBC,URINE 20-50 /HPF (0-3); WBC,URINE 0-3 /HPF (0-3)
[2019-01-31 01:22] LABS: BACTERIA,URINE FEW /HPF (None Seen)
[2019-01-31 02:01] VITALS: BP_SYST 107
[2019-01-31] MEDS: LEVOTHYROXINE SODIUM 0.025 MG TABLET PO SCH (06:14)
[2019-01-31 07:26] LABS: ANION GAP 5 (5-15); CALCIUM 8.2 mg/dL (8.4-11.0); CHLORIDE 107 mmol/L (98-107); GLUCOSE 77 mg/dL (70-99); POTASSIUM 3.6 mmol/L (3.5-5.1); SODIUM SERUM 140 mmol/L (136-145); UREA NITROGEN, BLOOD 19 mg/dL (8-21)
[2019-01-31 07:27] LABS: ALANINE AMINOTRANSFERASE 40 U/L (12-78); ALBUMIN 2.9 g/dL (3.4-4.8); ASPARTATE AMINOTRANSFERASE 60 U/L (10-37); CREATININE 0.83 mg/dL (0.55-1.30); TOTAL BILIRUBIN 0.9 mg/dL (0.0-1.0)
[2019-01-31 07:28] LABS: CHOLESTEROL 154 mg/dL (<200); FREE T4 (FREE THYROXINE) 0.6 ng/dL (0.6-1.6); HDL CHOLESTEROL 80 mg/dL (>55); LDL CHOLESTEROL 70 mg/dL (<100); THYROID STIMULATING HORMONE 4.63 uIu/mL (0.34-4.82); TRIGLYCERIDES 30 mg/dL (30-150)
[2019-01-31 07:45] VITALS: BP_SYST 101
[2019-01-31] MEDS: LOSARTAN POTASSIUM 25 MG TABLET PO SCH ×2 (09:00→09:37)
[2019-01-31 09:26] LABS: HEMATOCRIT 33.6 % (36-48); WHITE BLOOD COUNT (AUTO) 3.9 K/uL (4.8-10.8)
[2019-01-31 09:27] LABS: BASOPHILS % (AUTO) 1.2 % (0.0-2.0); EOSINOPHILS # (AUTO) 0.3 K/uL (0.0-0.4); EOSINOPHILS % (AUTO) 8.9 % (0.0-4.0); LYMPHOCYTES # (AUTO) 1.3 K/uL (1.0-5.5); LYMPHOCYTES % (AUTO) 33.3 % (20.5-51.5); MEAN CORPUSCULAR HEMOGLOBIN 32 pg (27-31); MEAN CORPUSCULAR HGB CONC 33 % (32-36); MEAN CORPUSCULAR VOLUME 99 fL (79.0-98.0); MONOCYTES # (AUTO) 0.5 K/uL (0.0-1.0); MONOCYTES % (AUTO) 12.3 % (1.7-9.3); NEUTROPHILS # (AUTO) 1.7 K/uL (1.8-7.7); NEUTROPHILS % (AUTO) 44.3 % (40.0-70.0); PLATELET COUNT (AUTO) 90 K/uL (130-430); RED CELL DISTRIBUTION WIDTH 13.8 % (9.0-15.0)
[2019-01-31] MEDS: FUROSEMIDE 20 MG/2 ML VIAL IVP SCH ×2 (09:37→20:23)
[2019-01-31] MEDS: POTASSIUM CHLORIDE 20 MEQ TAB.PRT.SR PO SCH (09:37)
[2019-01-31] MEDS: CYANOCOBALAMIN 1000 mCg TABLET PO SCH (09:37)
[2019-01-31] MEDS: CHOLECALCIFEROL (VITAMIN D3) 2,000 UNIT TABLET PO SCH (09:37)
[2019-01-31 11:28] VITALS: BP_SYST 108
[2019-01-31 15:18] VITALS: BP_SYST 109
[2019-01-31] MEDS ORDERED: DOXYCYCLINE HYCLATE 100 MG CAPSULE PO ONE (16:00)
[2019-01-31] MEDS ORDERED: RIVAROXABAN 10 MG TABLET PO SCH ×2 (17:00→18:00)
[2019-01-31] MEDS: CARVEDILOL 3.125 MG TABLET (COREG) PO SCH (18:24)
[2019-01-31 20:00] VITALS: BP_SYST 127
[2019-01-31] MEDS: DOXYCYCLINE HYCLATE 100 MG CAPSULE PO SCH (20:22)
[2019-02-01 00:18] VITALS: BP_SYST 127
[2019-02-01] MEDS: LEVOTHYROXINE SODIUM 0.025 MG TABLET PO SCH (06:39)
[2019-02-01 08:00] VITALS: BP_SYST 108
[2019-02-01] MEDS: POTASSIUM CHLORIDE 20 MEQ TAB.PRT.SR PO SCH (09:23)
[2019-02-01] MEDS: DOXYCYCLINE HYCLATE 100 MG CAPSULE PO SCH (09:24)
[2019-02-01] MEDS: CYANOCOBALAMIN 1000 mCg TABLET PO SCH (09:24)
[2019-02-01] MEDS: CHOLECALCIFEROL (VITAMIN D3) 2,000 UNIT TABLET PO SCH (09:24)
[2019-02-01] MEDS: LOSARTAN POTASSIUM 25 MG TABLET PO SCH (09:24)
[2019-02-01] MEDS: CARVEDILOL 3.125 MG TABLET (COREG) PO SCH (09:25)
[2019-02-01 10:07] LABS: HEPATITIS A AB, IgM Negative (Negative); HEPATITIS B CORE AB, IgM Negative (Negative); HEPATITIS B SURFACE AG Negative (Negative)
[2019-02-01 11:37] VITALS: BP_SYST 106
[2019-02-01 15:47] VITALS: BP_SYST 106
[2019-02-01] MEDS ORDERED: DOXY100C2 PO (16:46)
[2019-02-01 18:15] VITALS: BP_SYST 106
== END 2019-02-01 17:10 | disposition home health service (06) | DRG 292 ==
LOC: SED 14:35 → STU 18:08
PROVIDERS: ADMIT Internal Medicine; ATTEND Internal Medicine
DX: I11.0 Hypertensive heart disease with heart failure (principal); E44.1 Mild protein-calorie malnutrition; D68.59 Other primary thrombophilia; L03.116 Cellulitis of left lower limb; L03.115 Cellulitis of right lower limb; B17.9 Acute viral hepatitis, unspecified; D61.818 Other pancytopenia; I50.43 Acute on chronic combined systolic (congestive) and diastolic (congestive) heart failure; I48.0 Paroxysmal atrial fibrillation; D46.9 Myelodysplastic syndrome, unspecified; I42.9 Cardiomyopathy, unspecified; E03.9 Hypothyroidism, unspecified; I48.2 Chronic atrial fibrillation; Z68.22 Body mass index [BMI] 22.0-22.9, adult; Z95.0 Presence of cardiac pacemaker; Z79.82 Long term (current) use of aspirin; Z79.899 Other long term (current) drug therapy; Z90.49 Acquired absence of other specified parts of digestive tract
CPT/HCPCS: 36415; 71045; 76700-TC; 80053; 80061; 80074; 81000-TC; 82150-TC; 82550-TC; 83690-TC; 83735-TC; 83880; 84439; 84443-TC; 84484; 85025; 85379; 85610-TC; 85730-TC; 93005; 96361; 96374; 96375; 99285; G0378; J1940; J2270; J7030

== ENCOUNTER 2019-02-10 02:27 | Inpatient (IN) | payer OTHER, MEDICAID ==
[~2019-02-10] VITALS: Ht 147.3 cm; Wt 53.5 kg
[~2019-02-10 02:27] MED LIST changes: +ALEN10TA6 PO; -ASPI-1153 PO; +CA C-2 PO; +COR6.25 PO; +DOXY100C2 PO; +LEVO25TA2 PO; +MULT-1200 PO; +RIVA10TA PO; -RIVA15TA PO; +VITD2000 PO; -metoprolol PO
[2019-02-10 02:44] VITALS: BP_SYST 125
--- NOTE | 2019-02-10 02:47 | NUR ---
0240 - Patient to ER bed 6 to gown for evaluation. Side rails up. Report given to FAYE Blunt.
--- NOTE | 2019-02-10 02:50 | NUR ---
Patient AOx4, ambulatory, presents to ER with complaint of severe 10/10 left flank pain since yesterday afternoon. Patient states pain is non-radiating. No urinary symptoms reported. Patient states no injury to site. Patient has hx of CHF and pacemaker.
--- NOTE | 2019-02-10 02:51 | NUR ---
ER MD Salinas at bedside for medical evaluation.
[2019-02-10] MEDS ORDERED: NACL 0.9% 1,000 ML IV ONE (02:52)
[2019-02-10] MEDS ORDERED: ONDANSETRON HCL 4 MG/2 ML VIAL IVP ONE (03:00)
[2019-02-10] MEDS ORDERED: ASPIRIN 81 MG TAB.CHEW PO ONE (03:00)
[2019-02-10] MEDS ORDERED: MORPHINE 4 MG/ML INJ. SYRINGE IVP ONE (03:00)
--- NOTE | 2019-02-10 03:00 | NUR ---
# 20 gauge angiocath placed to LEFT AC. Use of asceptic technique. Opsite placed over site. Blood return noted. Blood for lab drawn from site. Flushed with 10 cc of normal saline. No evidence of infiltration noted. Patient tolerated well.
[2019-02-10 03:22] LABS: WHITE BLOOD COUNT (AUTO) 3.8 K/uL (4.8-10.8)
[2019-02-10 03:23] LABS: BASOPHILS # (AUTO) 0.1 K/uL (0.0-0.2); BASOPHILS % (AUTO) 2.2 % (0.0-2.0); EOSINOPHILS # (AUTO) 0.4 K/uL (0.0-0.4); EOSINOPHILS % (AUTO) 10.8 % (0.0-4.0); HEMATOCRIT 37.9 % (36-48); HEMOGLOBIN 12.4 g/dL (12.0-16.0); LYMPHOCYTES # (AUTO) 1.2 K/uL (1.0-5.5); LYMPHOCYTES % (AUTO) 32.6 % (20.5-51.5); MEAN CORPUSCULAR HEMOGLOBIN 32 pg (27-31); MEAN CORPUSCULAR HGB CONC 33 % (32-36); MEAN CORPUSCULAR VOLUME 99 fL (79.0-98.0); MONOCYTES # (AUTO) 0.5 K/uL (0.0-1.0); MONOCYTES % (AUTO) 12.3 % (1.7-9.3); NEUTROPHILS # (AUTO) 1.6 K/uL (1.8-7.7); NEUTROPHILS % (AUTO) 42.1 % (40.0-70.0); PLATELET COUNT (AUTO) 140 K/uL (130-430); RED BLOOD CELL COUNT(AUTO) 3.85 MIL/uL (4.2-6.2); RED CELL DISTRIBUTION WIDTH 13.7 % (9.0-15.0)
--- NOTE | 2019-02-10 03:33 | NUR ---
PATIENT STATES THAT SHE ONLY TAKES 2 MEDICATIONS AT HOME, BUT CANNOT RECALL THE NAME OF THE MEDICATIONS OR ITS INDICATION.
--- NOTE | 2019-02-10 03:34 | NUR ---
End of life care decisions discussed with PATIENT by Dr. UMANZOR. Opportunity for questions and concerns addressed. Patient's code status is FULL CODE, paperwork completed and placed in chart.
--- NOTE | 2019-02-10 03:40 | NUR ---
PATIENT SENT TO CT.
[2019-02-10 03:42] LABS: INR 0.9 (0.8-1.2); PROTHROMBIN TIME 9.5 SECS (9.5-12.5)
[2019-02-10 03:50] LABS: ANION GAP 8 (5-15); CALCIUM 8.5 mg/dL (8.4-11.0); CHLORIDE 107 mmol/L (98-107); CREATININE 0.81 mg/dL (0.55-1.30); GLUCOSE 84 mg/dL (70-99); POTASSIUM 3.6 mmol/L (3.5-5.1); SODIUM SERUM 142 mmol/L (136-145); UREA NITROGEN, BLOOD 22 mg/dL (8-21)
--- NOTE | 2019-02-10 03:50 | NUR ---
PATIENT RETURNED TO BED 06.
[2019-02-10 03:54] LABS: ALANINE AMINOTRANSFERASE 22 U/L (12-78); ALBUMIN 3.4 g/dL (3.4-4.8); AMYLASE 153 U/L (0-100); ASPARTATE AMINOTRANSFERASE 32 U/L (10-37); LIPASE 376 U/L (73-393); TOTAL BILIRUBIN 0.9 mg/dL (0.0-1.0)
--- NOTE | 2019-02-10 05:01 | NUR ---
Patient will be admitted to care of DR MCKENNA. Admitted to TELE unit. Will go to room 135. Summary report printed. Report will be given at bedside.
--- NOTE | 2019-02-10 05:26 | NUR ---
ADMISSION NOTE Received patient from ER via gurney. Patient admitted with diagnosis of acute pancreatitis. Patient oriented to hospital routine, call light, toileting and safety-patient verbalized understanding.
[2019-02-10 05:35] VITALS: BP_SYST 127
--- NOTE | 2019-02-10 06:16 | NUR ---
ROUNDS Patient asleep at this time, respirations even and unlabored, vital signs stable, on room air, denied any abdominal pain earlier, on clear liquids, tolerated well, no nausea or vomiting noted. Oriented to use call light for nurse assistance, light within reach, safety measures in place, bed alarm on, will monitor until report given to am nurse.
--- NOTE | 2019-02-10 07:20 | NUR ---
OPENING NOTE At initial assessment, patient is awake, alert and oriented x4, breathing even and unlabored. Denies any pain/discomfort at this time. IV site on the LAC 20 G patent and intact, saline locked. Safety and fall precautions in place, bed low and locked, side rails up x2, call light within reach, will continue to monitor.
[2019-02-10 08:05] VITALS: BP_SYST 119
--- NOTE | 2019-02-10 11:30 | NUR ---
ROUNDS Patient assisted to the bathroom and back to bed, repositioned for comfort, breathing even and unlabored. No s/s of acute distress noted. IV site, saline locked. Safety precautions observed, call light within reach, will continue to monitor.
[2019-02-10 12:45] VITALS: BP_SYST 117
[2019-02-10] MEDS ORDERED: ALENDRONATE SODIUM 10 MG TABLET (FOSAMAX) PO SCH (12:45)
--- NOTE | 2019-02-10 12:52 | NUR ---
DR. MCKENNA AT THE BEDSIDE Dr. Mckenna seen and examined the patient at the bedside.
--- NOTE | 2019-02-10 12:57 | NUR ---
CONSULTATION PAGED/CALLED Reason for Consultation: PELVIC MASS Person Who was Notified: ADRIENNE Consulting Physician: DR. NUNEZ Icer Hand Specialty: GYNE Ordering Physician: DR. MCKENNA
[2019-02-10] MEDS ORDERED: LACTULOSE 20 GM/30 ML UDC PO ONE (13:00)
--- NOTE | 2019-02-10 13:10 | NUR ---
CONSULTATION PAGED REASON FOR CONSULTATION:PELVIC MASS WAS CONSULT CALLED?Y PERSON WHO WAS NOTIFIED:CARLOS CONSULTING PHYSICIAN:PABLO BROWN BUSINESS TECHNOLOGY PROFESSOR SPECIALTY:ONCOLOGY/HENMATOLOGY BUSINESS TECHNOLOGY PROFESSOR PHONE NUMBER:[phone] REQUESTING PHYSICIAN:PATRIZIA ROSENTHAL
--- NOTE | 2019-02-10 14:50 | NUR ---
ROUNDS Patient is resting with eyes closed, stable condition. Respirations breathing even and unlabored. Easily arousable, denies any pain/discomfort at this time. Safety precautions observed, call light within reach.
[2019-02-10 16:47] VITALS: BP_SYST 123
--- NOTE | 2019-02-10 17:00 | NUR ---
ROUNDS Patient is resting with eyes closed comfortably in bed, easily arousable. Breathing even and unlabored. Awaiting for radiology to do ultrasound pelvic, patient is aware. Safety precautions in place.
--- NOTE | 2019-02-10 18:23 | NUR ---
CLOSING NOTE Patient is awake, eating dinner, in stable condition, no respiratory distress noted, on room air. No c/o any pain, discomfort at this time. IV site patent and intact, saline locked. Safety and fall precautions in place, bed low and locked, side rails up x2, call light within reach. All needs met and anticipated throughout the shift, will endorse plan of care.
--- NOTE | 2019-02-10 19:20 | NUR ---
OPENING NOTE Received report from Norma. Patient resting in bed awake, alert, oriented x4. Breathing unlabored and even on room air. No signs of distress, no needs at this time. Fall and safety precautions in place. Bed in lowest position, brake on, call light within reach. Will continue to monitor.
[2019-02-10 20:00] VITALS: BP_SYST 114
--- NOTE | 2019-02-10 20:23 | NUR ---
Patient's daughter at the bedside with the patient.
[2019-02-10] MEDS: CARVEDILOL 6.25 MG TABLET (COREG) PO SCH (21:58)
--- NOTE | 2019-02-10 23:00 | NUR ---
ENDORSEMENT OF CARE Endorsed patient care to FAYE Markham.
[2019-02-11 00:24] VITALS: BP_SYST 133
--- NOTE | 2019-02-11 00:35 | NUR ---
Patient resting comfortably in bed with eyes closed. Breathing even and unlabored with visible chest rise and fall noted. Bed is locked, in the lowest position, 2x side rails up. Call light is within reach.
--- NOTE | 2019-02-11 03:01 | NUR ---
Patient resting comfortably in bed, eyes are closed. Breathing even and unlabored with visible chest rise and fall noted. No SOB, no acute distress, no signs of pain or facial grimacing noted. Bed is locked, in the lowest position, 2x side rails up. Call light is within reach.
--- NOTE | 2019-02-11 05:20 | NUR ---
Patient resting comfortably in bed with eyes closed. Breathing even and unlabored with visible chest rise and fall noted. Bed is locked, in the lowest position, 2x side rails up. Call light within reach.
[2019-02-11 07:07] LABS: BASOPHILS % (AUTO) 1.3 % (0.0-2.0); EOSINOPHILS # (AUTO) 0.3 K/uL (0.0-0.4); EOSINOPHILS % (AUTO) 7.8 % (0.0-4.0); HEMATOCRIT 33.7 % (36-48); HEMOGLOBIN 11.1 g/dL (12.0-16.0); LYMPHOCYTES # (AUTO) 1.1 K/uL (1.0-5.5); MEAN CORPUSCULAR HEMOGLOBIN 33 pg (27-31); MEAN CORPUSCULAR HGB CONC 33 % (32-36); MEAN CORPUSCULAR VOLUME 98 fL (79.0-98.0); MONOCYTES # (AUTO) 0.4 K/uL (0.0-1.0); MONOCYTES % (AUTO) 12.1 % (1.7-9.3); NEUTROPHILS # (AUTO) 1.5 K/uL (1.8-7.7); NEUTROPHILS % (AUTO) 44.8 % (40.0-70.0); PLATELET COUNT (AUTO) 104 K/uL (130-430); RED BLOOD CELL COUNT(AUTO) 3.43 MIL/uL (4.2-6.2); RED CELL DISTRIBUTION WIDTH 13.5 % (9.0-15.0); WHITE BLOOD COUNT (AUTO) 3.3 K/uL (4.8-10.8)
[2019-02-11 07:28] LABS: ALANINE AMINOTRANSFERASE 45 U/L (12-78); ALBUMIN 2.7 g/dL (3.4-4.8); ANION GAP 6 (5-15); ASPARTATE AMINOTRANSFERASE 62 U/L (10-37); CALCIUM 7.7 mg/dL (8.4-11.0); CHLORIDE 110 mmol/L (98-107); CREATININE 0.76 mg/dL (0.55-1.30); GLUCOSE 81 mg/dL (70-99); POTASSIUM 3.4 mmol/L (3.5-5.1); SODIUM SERUM 141 mmol/L (136-145); TOTAL BILIRUBIN 0.7 mg/dL (0.0-1.0); UREA NITROGEN, BLOOD 19 mg/dL (8-21)
--- NOTE | 2019-02-11 07:28 | NUR ---
Handoff report given to oncoming dayshift nurse at the bedside. Patient is resting comfortably in bed with eyes closed. Breathing even and unlabored with visible chest rise and fall noted. No SOB, no acute distress, no signs of pain or facial grimacing noted. Bed is locked, in the lowest position, 2x side rails up. Call light within reach. Fall and safety precautions maintained. All needs have been met during this shift.
[2019-02-11 07:30] VITALS: BP_SYST 118
--- NOTE | 2019-02-11 08:00 | NUR ---
Opening notes, received pt in bed, pt is aaox4, denies pain, no sob, no distress. c/o left flank pain only when she moves, does not require pain meds at this time. safety precaution in place. call light in reach. bed in low position. pt encouraged to call for assist and pain medications. will cont to monitor.
[2019-02-11] MEDS: CHOLECALCIFEROL (VITAMIN D3) 2,000 UNIT TABLET PO SCH (08:39)
[2019-02-11] MEDS: FUROSEMIDE 20 MG TABLET PO SCH (08:40)
[2019-02-11] MEDS: MULTIVITS,CA,MINERALS/IRON/FA 1 TABLET PO SCH (08:40)
[2019-02-11] MEDS: LACTULOSE 20 GM/30 ML UDC PO SCH ×2 (08:41→08:48)
[2019-02-11] MEDS: LEVOTHYROXINE SODIUM 0.025 MG TABLET PO SCH (08:41)
[2019-02-11] MEDS: CARVEDILOL 6.25 MG TABLET (COREG) PO SCH ×2 (08:41→21:14)
[2019-02-11] MEDS ORDERED: CHOLECALCIFEROL 2000 UNIT PO SCH (09:00)
--- NOTE | 2019-02-11 09:42 | NUR ---
Nutrition Update Presley Scale 18 noted. Pt admitted for acute pancreatitis. Diet: [facility] BMI: 24.7 kg/m2 RD to follow per nutrition care standards.
--- NOTE | 2019-02-11 09:55 | NUR ---
pt in bed, no c/o of pain, no sob,. pt stated she is fine at this time. will cont to monitor.
[2019-02-11 11:00] VITALS: BP_SYST 127
[2019-02-11] MEDS ORDERED: DIATR MEGLU/DIATRIZ SOD 30 ML SOLUTION PO ONE (11:11)
[2019-02-11] MEDS ORDERED: ACETAMINOPHEN 325 MG TABLET PO PRN (11:30)
[2019-02-11] MEDS ORDERED: POTASSIUM CHLORIDE 20 MEQ TAB.PRT.SR PO ONE (12:00)
[2019-02-11] MEDS ORDERED: IOHEXOL 100 ML IV ONE (13:48)
--- NOTE | 2019-02-11 15:00 | NUR ---
PT CAME BACK FROM C.T., PT GIVEN LUNCH TRAY FOR PT TO EAT.
[2019-02-11 16:37] VITALS: BP_SYST 123
--- NOTE | 2019-02-11 17:42 | NUR ---
pt in bed, no c/o of pain, pt c/o of having diarrhea, pt was given po contrast earlier. will cont to monitor. no c/o pain.
--- NOTE | 2019-02-11 19:36 | NUR ---
CLOSING NOTES, PT HAS BEEN STABLE THE WHOLE SHIFT, NO UNTOWARD INCIDENT. PT HAS CT WITH CONTRAST, NO REACTION NOTED, SEEN BY DR ALMAZAN AND DR MCKENNA. ENDORSED TO NIGHT RN.
[2019-02-11 20:15] VITALS: BP_SYST 149
--- NOTE | 2019-02-11 20:15 | NUR ---
Opening notes Pt AAO, VSS, no s/s distress noted. IV saline lock L. AC 20G clear, patent. Call light within reach. Encouraged pt to call for assistance. Pt verbalized understanding. To monitor.
[2019-02-11] MEDS: DOCUSATE SODIUM 250 MG CAPSULE PO SCH (21:14)
--- NOTE | 2019-02-12 00:05 | NUR ---
Rounds Pt asleep. No s/s distress noted. Call light within reach. Safety measures in place. To monitor.
[2019-02-12 00:18] VITALS: BP_SYST 106
--- NOTE | 2019-02-12 02:22 | NUR ---
Rounds Pt asleep. Respirations even, unlabored. Call light within reach. Bed low, locked in place. To monitor.
--- NOTE | 2019-02-12 04:45 | NUR ---
Rounds/Bathroom Pt awake, alert, ambulated to the bathroom, steady gait. No s/s distress noted. Call light within reach. Safety measures in place. To monitor.
--- NOTE | 2019-02-12 05:30 | NUR ---
F/U consult with Dr. Garcia (OB)
--- NOTE | 2019-02-12 05:39 | NUR ---
Follow up consult was called for Dr. Garcia s/w [place]. Re: Pelvic Mass
--- NOTE | 2019-02-12 05:45 | NUR ---
Lab draw at bedside.
--- NOTE | 2019-02-12 06:20 | NUR ---
Closing notes Pt asleep. No s/s distress noted. Bed low, locked, call light within reach. All needs met throughout the night. To endorse to dayshift RN.
[2019-02-12 07:06] LABS: ANION GAP 9 (5-15); CHLORIDE 108 mmol/L (98-107); CREATININE 0.85 mg/dL (0.55-1.30); GLUCOSE 88 mg/dL (70-99); POTASSIUM 4.2 mmol/L (3.5-5.1); SODIUM SERUM 142 mmol/L (136-145); UREA NITROGEN, BLOOD 23 mg/dL (8-21)
--- NOTE | 2019-02-12 07:10 | NUR ---
Opening Note patient resting in bed, awake and alert, no signs of distress, breathing unlabored and symmetrical, denies pain, educated patient on use of call light for assistance, verbalized understanding, call light and bedside table left within reach, room close to station, will continue to monitor patient
[2019-02-12 07:26] LABS: HEMOGLOBIN 11.1 g/dL (12.0-16.0); MEAN CORPUSCULAR HEMOGLOBIN 32 pg (27-31); MEAN CORPUSCULAR HGB CONC 33 % (32-36); MEAN CORPUSCULAR VOLUME 99 fL (79.0-98.0); NEUTROPHILS % (AUTO) 50.7 % (40.0-70.0); PLATELET COUNT (AUTO) 105 K/uL (130-430); RED BLOOD CELL COUNT(AUTO) 3.45 MIL/uL (4.2-6.2); RED CELL DISTRIBUTION WIDTH 13.5 % (9.0-15.0); WHITE BLOOD COUNT (AUTO) 4.2 K/uL (4.8-10.8)
[2019-02-12 07:27] LABS: BASOPHILS % (AUTO) 0.9 % (0.0-2.0); EOSINOPHILS # (AUTO) 0.3 K/uL (0.0-0.4); EOSINOPHILS % (AUTO) 7.4 % (0.0-4.0); LYMPHOCYTES # (AUTO) 1.1 K/uL (1.0-5.5); MONOCYTES # (AUTO) 0.6 K/uL (0.0-1.0); NEUTROPHILS # (AUTO) 2.1 K/uL (1.8-7.7)
[2019-02-12 07:40] LABS: CALCIUM 8.2 mg/dL (8.4-11.0)
[2019-02-12] MEDS: FUROSEMIDE 20 MG TABLET PO SCH (08:07)
[2019-02-12] MEDS: MULTIVITS,CA,MINERALS/IRON/FA 1 TABLET PO SCH (08:07)
[2019-02-12] MEDS: CHOLECALCIFEROL (VITAMIN D3) 2,000 UNIT TABLET PO SCH (08:07)
[2019-02-12] MEDS: CARVEDILOL 6.25 MG TABLET (COREG) PO SCH ×2 (08:08→20:23)
[2019-02-12] MEDS: DOCUSATE SODIUM 250 MG CAPSULE PO SCH ×2 (08:08→20:21)
[2019-02-12] MEDS: LEVOTHYROXINE SODIUM 0.025 MG TABLET PO SCH (08:09)
[2019-02-12 08:16] VITALS: BP_SYST 135
--- NOTE | 2019-02-12 08:18 | NUR ---
Medication Administration educated patient regarding meds, verbalized understanding, tolerated well by mouth, she is sitting on side of bed eating breakfast, no signs of distress, educated her on plan of care, verbalized understanding, educated patient on use of call light for assistance, verbalized understanding, call light and bedside table left within reach, room close to station, safety precautions in place, will continue to monitor
[2019-02-12] MEDS ORDERED: POTASSIUM CHLORIDE 20 MEQ TAB.PRT.SR PO SCH (09:00)
--- NOTE | 2019-02-12 09:04 | NUR ---
Ambulated to Restroom/stool sample sent to lab at this time, safety precautions remain in place
[2019-02-12 09:26] LABS: TOTAL IRON BIND. CAPACITY 358 ug/dL (250-450)
--- NOTE | 2019-02-12 11:35 | NUR ---
Paged Dr. Stockton for Home Health Order per Chayo ULLOA MD spoke with her and placed order for home health, calling to clarify orders for home health needs for patient
[2019-02-12 12:19] VITALS: BP_SYST 72
--- NOTE | 2019-02-12 14:11 | NUR ---
PT khalida at this time, Elyo took her to rehab room to practice stairs, will assess when she returns
--- NOTE | 2019-02-12 14:24 | NUR ---
Spoke with Dr. Garcia over the phone, stated has not seen the patient yet but will be by to see her soon
--- NOTE | 2019-02-12 14:34 | NUR ---
Discharge Planning: DCP faxed to [facility] (f [phone] p [phone]) DCP to follow up. Addendum: 02/12/19 at 1538 by Chayo SCHULER [facility] (f [phone] p [phone]) accepted patient per [facility].
--- NOTE | 2019-02-12 14:47 | NUR ---
Attempted to Call Daughter Ashtyn Negron to inform her of possible discharge today, left voicemail and call back number
[2019-02-12 16:03] VITALS: BP_SYST 126
--- NOTE | 2019-02-12 16:30 | NUR ---
Patient Ambulating to restroom steady gait, breathing unlabored and symmetrical, no signs of distress, educated patient on use of call light for assistance, verbalized understanding, room close to station, will continue to monitor
--- NOTE | 2019-02-12 18:45 | NUR ---
Second Call to daughter left voicemail again informing about DC, will await call back
--- NOTE | 2019-02-12 18:52 | NUR ---
Spoke with Dr. Coley at nurses' station, stated patient needs to see him in his office in 2 weeks for biopsy, stated patient OK to DC home tonight. Will inform night shift supervisor nurse
--- NOTE | 2019-02-12 18:53 | NUR ---
Closing Note patient ambulating around room, anxious to leave, denies pain at this time, breathing unlabored and symmetrical, safety precautions remain in place, educated patient on use of call light for assistance, verbalized understanding, call light and bedside table left within reach, room close to station, will endorse to overnight stocker nurse
--- NOTE | 2019-02-12 19:21 | NUR ---
Spoke with Daughter over phone, informed her of DC order and about following up with Dr. Coley in [address] Garcia in 1 week. She stated will be by within the hour to pickling drum operator mother
--- NOTE | 2019-02-12 19:39 | NUR ---
INITIAL NOTES: PT IS ALERT / ORIENTED , WAITING FOR HER DAUGHTER TO PICK HER UP ; PER DAY SHIFT RN PT IS CLEARED TO DC BY DR NUNEZ AND DR ALMAZAN , ALSO [facility]; ASSESSMENT DONE ; PT IS COMFORTABLE ; NOT IN ANY ACUTE DISTRESS, DENIED ANY PAIN OR DISCOMFORT AT THIS TIME ; PT IS ON HER HOME DRESS AT THIS TIME , ANXIOUSLY WATING FOR HER DAUGHTER , EXPLAINED TO HER THAT HER DAUGHTER WILL BE HERE IN 1 HR SINCE SHE JUST FINISHED HER WORK . CALL BYERS IN REACH , BED ALARM IS ON ; ENCOURAGED PT TO CALL FOR ANY ASSIST . IV TO THE LEFT AC CLEAN , NO SIS OF ANY INFILTRATION NOTED . WILL DC IV UPON DC PT HOME . WILL CONTINUE TO MONITOR PT .
[2019-02-12 19:45] VITALS: BP_SYST 115
--- NOTE | 2019-02-12 20:24 | NUR ---
medication : Pts daughter is not here yet , due medication given,educated pt on Coreg , pts bp is 150/ 85, pt is very anxious that her daughter is not here yet , explained to her that daughter is coming from [place] because of the traffic she might take more time .
--- NOTE | 2019-02-12 21:10 | NUR ---
DISCHARGE : Patient given medication reconciliation form and D/C instructions. Exit Care provided. Patients daughter verbalized understanding. Ambulatory with steady gait for discharge to home with home health is arranged by case management , informed daughter about it and showed her its information in the packet . Patient in stable condition, ID band removed. IV catheter removed, noticed it was bleeding at first changed dressing and applied dressing , removed dressing after 5 min and checked , no active bleeding at this time , new dressing applied just for precaution and provided extra bandages to the daughter . informed daughter that pt received her Coreg and Colace at around 2030 . Patient and daughter educated on pain management. All belongings sent with patient. pt wheeled out via wheelchair by FAMILY MEDICINE RESIDENT . pt is comfortable and n stable condition. Also explained daughter about the follow up with Dr Jose CALLAHAN 1 week ,PCP in 1 week , and DR Coley in 1-2 weeks , all phone numbers provided to her too ,requested daughter to call friday and get the appointment before its too late .
[2019-02-14 09:37] LABS: FERRITIN 104 ng/mL (15-150); FOLATE (FOLIC ACID) >20.0 ng/mL (>3.0)
--- NOTE | 2019-02-22 16:21 | NUR ---
DISCHARGE FOLLOW UP PHONE CALL: FISHERIES INSPECTOR and PACKER DENTURE attempted to phone pt @ [phone] on 02/15, 02/19 and 02/22. FISHERIES INSPECTOR contacted [facility] and spoke with Carly, who stated that pt and daughter Ashtyn made an appointment for assessment on 02/13, but cancelled that appointment the day of. also attempted to contact them since then and left multiple messages but no one has returned their calls. FISHERIES INSPECTOR phoned Dr. Stockton, Dr. Coley and Dr. Garcia office to see if patient made an appointment with them, per office, no appointments were made. FISHERIES INSPECTOR will attempt again one more time. Addendum: 02/24/19 at 1101 by Sariah Villarreal MSW FISHERIES INSPECTOR called [facility] to request for a wellness check. Officer went to the home and reports pt is well. No further follow up phone call needed at this time.
== END 2019-02-12 21:10 | disposition home health service (06) | DRG 392 ==
LOC: SED 02:27 → STU 04:56 → SMU 13:05
PROVIDERS: ADMIT Internal Medicine; ATTEND Internal Medicine
DX: R19.00 Intra-abdominal and pelvic swelling, mass and lump, unspecified site (principal); D68.69 Other thrombophilia; D61.818 Other pancytopenia; L03.116 Cellulitis of left lower limb; L03.115 Cellulitis of right lower limb; I50.42 Chronic combined systolic (congestive) and diastolic (congestive) heart failure; I25.10 Atherosclerotic heart disease of native coronary artery without angina pectoris; K59.00 Constipation, unspecified; D46.9 Myelodysplastic syndrome, unspecified; I48.0 Paroxysmal atrial fibrillation; E03.9 Hypothyroidism, unspecified; I11.0 Hypertensive heart disease with heart failure; R93.89 Abnormal findings on diagnostic imaging of other specified body structures; Z95.0 Presence of cardiac pacemaker; Z79.899 Other long term (current) drug therapy; Z90.49 Acquired absence of other specified parts of digestive tract
CPT/HCPCS: 36415; 71045; 76856-TC; 80048; 80053; 82150-TC; 82272; 82550-TC; 82607; 82728; 82746; 83540-TC; 83550-TC; 83605; 83690-TC; 83880; 84484; 85025; 85379; 85610-TC; 85651-TC; 85730-TC; 86304; 87040-TC; 87081; 93005; 96374; 96375; 99285; J2270; J2405; Q9964; Q9967

== ENCOUNTER 2019-03-12 01:19 | Emergency (ER) | payer OTHER, MEDICAID ==
[~2019-03-12] VITALS: Ht 147.3 cm; Wt 59.0 kg
[2019-03-12 01:20] VITALS: BP_SYST 123
[2019-03-12 01:58] VITALS: BP_SYST 123
== END 2019-03-12 01:58 | disposition home or self-care (01) ==
LOC: SED 01:19
DX: R04.0 Epistaxis (principal); I10 Essential (primary) hypertension; Z86.79 Personal history of other diseases of the circulatory system; Z95.0 Presence of cardiac pacemaker; Z90.89 Acquired absence of other organs; Z79.899 Other long term (current) drug therapy
CPT/HCPCS: 99281

== ENCOUNTER 2019-12-15 16:10 | Outpatient (CLI) | payer OTHER, MEDICAID ==
[~2019-12-15 16:10] MED LIST changes: -ALEN10TA6 PO; +ALEN10TA7 PO
[2019-12-15 17:03] LABS: HEMATOCRIT 38.5 % (36-48); HEMOGLOBIN 12.7 g/dL (12.0-16.0); MEAN CORPUSCULAR HEMOGLOBIN 33 pg (27-31); MEAN CORPUSCULAR HGB CONC 33 % (32-36); MEAN CORPUSCULAR VOLUME 98 fL (79.0-98.0); PLATELET COUNT (AUTO) 122 K/uL (130-430); RED BLOOD CELL COUNT(AUTO) 3.92 MIL/uL (4.2-6.2); RED CELL DISTRIBUTION WIDTH 13.4 % (9.0-15.0); WHITE BLOOD COUNT (AUTO) 3.4 K/uL (4.8-10.8)
[2019-12-15 17:34] LABS: ALANINE AMINOTRANSFERASE 33 U/L (12-78); ALBUMIN 3.6 g/dL (3.4-4.8); ANION GAP 7 (5-15); ASPARTATE AMINOTRANSFERASE 41 U/L (10-37); CALCIUM 8.4 mg/dL (8.4-11.0); CHLORIDE 106 mmol/L (98-107); CREATININE 0.71 mg/dL (0.55-1.30); GLUCOSE 82 mg/dL (70-99); POTASSIUM 3.3 mmol/L (3.5-5.1); SODIUM SERUM 142 mmol/L (136-145); TOTAL BILIRUBIN 0.9 mg/dL (0.0-1.0); UREA NITROGEN, BLOOD 21 mg/dL (8-21)
[2019-12-15 19:15] LABS: BAND % (MANUAL) 4 % (0-6); BASOPHILS % (MANUAL) 0 % (0-2); EOSINOPHILS % (MANUAL) 9 % (0-7); LYMPHOCYTES % (MANUAL) 32 % (20-46); MONOCYTES % (MANUAL) 6 % (0-11)
[2019-12-16 07:06] LABS: HEMOGLOBIN A1C 5.6 % (4.8-5.6)
== END 2019-12-15 17:53 | disposition home or self-care (01) ==
LOC: SLB 16:10
PROVIDERS: ATTEND Internal Medicine
DX: I10 Essential (primary) hypertension (principal); I48.0 Paroxysmal atrial fibrillation; I50.40 Unspecified combined systolic (congestive) and diastolic (congestive) heart failure; E55.9 Vitamin D deficiency, unspecified; M81.0 Age-related osteoporosis without current pathological fracture; Z79.899 Other long term (current) drug therapy
CPT/HCPCS: 36415; 80053; 82306; 82607; 83036; 84443-TC; 85007; 85027

== ENCOUNTER 2020-12-31 22:44 | Emergency (ER) | payer OTHER, MEDICAID, SELFPAY ==
[~2020-12-31] VITALS: Ht 149.9 cm; Wt 56.7 kg
[~2020-12-31 22:44] MED LIST changes: +ALEN10TA25 PO; -ALEN10TA7 PO
--- NOTE | 2020-12-31 22:45 | NUR ---
Placed in room 07 . Placed on personnel monitor, blood pressure machine and pulse oximeter. To gown for exam. Side rails up.
[2020-12-31 23:03] VITALS: BP_SYST 141
--- NOTE | 2020-12-31 23:10 | NUR ---
PT ALERT AND ORIENTED REPORTING WORSENING SOB, WEAKNESS, AND RIGHT LEG SWELLING. PT DENIES ANY PAIN CURRENTLY.
--- NOTE | 2020-12-31 23:25 | NUR ---
DR. PETERS TO BEDSIDE TO EVALUATE PT STATUS
[2020-12-31 23:51] LABS: BASOPHILS # (AUTO) 0.1 K/uL (0.0-0.2); BASOPHILS % (AUTO) 2.1 % (0.0-2.0); EOSINOPHILS # (AUTO) 0.2 K/uL (0.0-0.4); EOSINOPHILS % (AUTO) 6.6 % (0.0-4.0); HEMATOCRIT 37.6 % (36-48); HEMOGLOBIN 12.2 g/dL (12.0-16.0); LYMPHOCYTES # (AUTO) 0.8 K/uL (1.0-5.5); LYMPHOCYTES % (AUTO) 21.6 % (20.5-51.5); MEAN CORPUSCULAR HEMOGLOBIN 33 pg (27-31); MEAN CORPUSCULAR HGB CONC 33 % (32-36); MEAN CORPUSCULAR VOLUME 101 fL (79.0-98.0); MONOCYTES # (AUTO) 0.4 K/uL (0.0-1.0); MONOCYTES % (AUTO) 11.4 % (1.7-9.3); NEUTROPHILS # (AUTO) 2.1 K/uL (1.8-7.7); NEUTROPHILS % (AUTO) 58.3 % (40.0-70.0); PLATELET COUNT (AUTO) 93 K/uL (130-430); RED BLOOD CELL COUNT(AUTO) 3.73 MIL/uL (4.2-6.2); RED CELL DISTRIBUTION WIDTH 14.7 % (9.0-15.0); WHITE BLOOD COUNT (AUTO) 3.5 K/uL (4.8-10.8)
[2021-01-01 00:11] LABS: CALCIUM 7.7 mg/dL (8.4-11.0); GLUCOSE 98 mg/dL (70-99); UREA NITROGEN, BLOOD 19 mg/dL (8-21)
[2021-01-01 00:12] LABS: ALANINE AMINOTRANSFERASE 24 U/L (12-78); ALBUMIN 3.3 g/dL (3.4-4.8); ASPARTATE AMINOTRANSFERASE 46 U/L (10-37); C-REACTIVE PROTEIN QUANT < 0.2 mg/dL (0-0.5)
[2021-01-01 00:18] LABS: POTASSIUM 3.8 mmol/L (3.5-5.1); SODIUM SERUM 143 mmol/L (136-145)
[2021-01-01 00:19] LABS: ANION GAP 8 (5-15); CHLORIDE 109 mmol/L (98-107)
[2021-01-01 00:21] LABS: FIBRINOGEN 204 mg/dL (200-400)
--- NOTE | 2021-01-01 01:00 | NUR ---
PT RESTING QUIETLY IN NO DISTRESS AWAITING DISPOSITION
--- NOTE | 2021-01-01 02:15 | NUR ---
PT WAS ABLE TO AMBULATE TO BS WITH SUPPORT TO PROVIDE URINE SAMPLE. URINE SENT TO LAB FOR ANALYSIS
--- NOTE | 2021-01-01 03:08 | NUR ---
REPORT GIVEN TO FAYE PARTIDA WHO WILL ASSUME CARE.
[2021-01-01 03:32] LABS: BILIRUBIN,URINE NEGATIVE (NEGATIVE); BLOOD, URINE 1+ (NEGATIVE); CLARITY/URINE CLEAR (CLEAR); COLOR,URINE YELLOW (YELLOW); GLUCOSE,URINE NEGATIVE (NEGATIVE); KETONES,URINE TRACE (NEGATIVE); LEUKOCYTE ESTERASE ,URINE NEGATIVE (NEGATIVE); NITRITE, URINE NEGATIVE (NEGATIVE); PROTEIN URINE 2+ (NEGATIVE)
[2021-01-01] MEDS ORDERED: IOHEXOL 350 mgI/mL, 150 ML INFUS..BTL IV ONE (03:57)
--- NOTE | 2021-01-01 04:00 | NUR ---
Pt resting, symmetric chest rise and fall.
[2021-01-01 04:19] LABS: BACTERIA,URINE FEW /HPF (None Seen); WBC,URINE 0-3 /HPF (0-3)
--- NOTE | 2021-01-01 05:20 | NUR ---
Pt assisted to restroom. No complaints at this time.
--- NOTE | 2021-01-01 06:20 | NUR ---
Family has been called and LVM, patient pending d/c.
--- NOTE | 2021-01-01 08:32 | NUR ---
Dietary called for breakfast tray.
--- NOTE | 2021-01-01 08:50 | NUR ---
Breakfast tray provided.
--- NOTE | 2021-01-01 08:58 | NUR ---
Insurance Claims Examiner notified of repeated attempts to notify patient's daughter.
--- NOTE | 2021-01-01 10:10 | NUR ---
Patient given written and verbal discharge instructions and verbalizes understanding. ER MD discussed with patient the results and treatment provided. Patient in stable condition. ID arm band removed. Patient educated on pain management and to follow up with PMD. Pain Scale 0/10. Opportunity for questions provided and answered. Medication side effect fact sheet provided.
[2021-01-01 10:11] VITALS: BP_SYST 134
== END 2021-01-01 10:11 | disposition home or self-care (01) ==
LOC: SED 22:44
DX: R06.02 Shortness of breath (principal); J90 Pleural effusion, not elsewhere classified; I10 Essential (primary) hypertension; Z79.899 Other long term (current) drug therapy; Z20.822 Contact with and (suspected) exposure to COVID-19
CPT/HCPCS: 36415; 71045; 71275; 76376; 80053; 81000; 82550; 84484; 85025; 85379; 85384; 86140; 87426; 99285; Q9967

== ENCOUNTER 2022-05-16 23:04 | Inpatient (IN) | payer OTHER, MEDICAID ==
[~2022-05-16] VITALS: Ht 147.3 cm; Wt 49.4 kg
[~2022-05-16 23:04] MED LIST changes: +APIX2.5T PO; -CA C-2 PO; +CAR30 PO; -CARV6.2554 PO; -CHOL20004 PO; +DONE10TA44 PO; -DOXY100C2 PO; +FURO-149 PO; -FURO-150 PO; -LEVO25TA2 PO; -LEVO25TA7 PO; +LEVO50TA8 PO; +Lidocaine Patch 5% TP; +MEMA5TAB PO; +MULT-1145 PO; -MULT-1159 PO; -MULT-1200 PO; +POTA-197 PO; -RIVA10TA PO
[2022-05-16 23:08] VITALS: BP_SYST 135
--- NOTE | 2022-05-16 23:14 | NUR ---
PER DAUGHTER, STATES THAT PATIENT HAS BEEN COMPLAINING OF DIZZINESS SINCE APROX 2000 TODAY. NO OTHER SYMPTOMS AT THIS TIME.
--- NOTE | 2022-05-16 23:29 | NUR ---
# 20 gauge angiocath placed to R AC. Use of asceptic technique. Opsite placed over site. Blood return noted. Flushed with 10 cc of normal saline. No evidence of infiltration noted. Patient tolerated well.
--- NOTE | 2022-05-16 23:39 | NUR ---
Pt resting in bed at this time. Daughter at bedside. BLE moderate swelling w/ redness and tenderness. Pt states DIETZ 05/10.
[2022-05-17 01:03] LABS: BASOPHILS # (AUTO) 0.1 K/uL (0.0-0.2); BASOPHILS % (AUTO) 1.9 % (0.0-2.0); EOSINOPHILS # (AUTO) 0.3 K/uL (0.0-0.4); EOSINOPHILS % (AUTO) 7.8 % (0.0-4.0); HEMOGLOBIN 10.9 g/dL (12.0-16.0); LYMPHOCYTES # (AUTO) 0.8 K/uL (1.0-5.5); LYMPHOCYTES % (AUTO) 23.3 % (20.5-51.5); MEAN CORPUSCULAR HEMOGLOBIN 32 pg (27-31); MEAN CORPUSCULAR HGB CONC 33 % (32-36); MEAN CORPUSCULAR VOLUME 98 fL (79.0-98.0); MONOCYTES # (AUTO) 0.4 K/uL (0.0-1.0); NEUTROPHILS # (AUTO) 1.8 K/uL (1.8-7.7); PLATELET COUNT (AUTO) 109 K/uL (130-430); RED BLOOD CELL COUNT(AUTO) 3.37 MIL/uL (4.2-6.2); RED CELL DISTRIBUTION WIDTH 14.3 % (9.0-15.0); WHITE BLOOD COUNT (AUTO) 3.3 K/uL (4.8-10.8)
[2022-05-17 01:15] LABS: ANION GAP 7 (5-15); CALCIUM 7.8 mg/dL (8.4-11.0); CHLORIDE 107 mmol/L (98-107); CREATININE 1.45 mg/dL (0.55-1.30); GLUCOSE 136 mg/dL (70-99); POTASSIUM 3.7 mmol/L (3.5-5.1); SODIUM SERUM 142 mmol/L (136-145); UREA NITROGEN, BLOOD 19 mg/dL (8-21)
[2022-05-17 01:20] LABS: PROTHROMBIN TIME 10.5 SECS (9.5-12.5)
[2022-05-17 01:23] LABS: ALANINE AMINOTRANSFERASE 13 U/L (12-78); ALBUMIN 3.1 g/dL (3.4-4.8); ASPARTATE AMINOTRANSFERASE 38 U/L (10-37); TOTAL BILIRUBIN 0.7 mg/dL (0.0-1.0)
[2022-05-17 01:31] LABS: ALCOHOL, BLOOD < 3 mg/dL (<10)
[2022-05-17 02:28] LABS: BILIRUBIN,URINE NEGATIVE (NEGATIVE); BLOOD, URINE NEGATIVE (NEGATIVE); CLARITY/URINE CLEAR (CLEAR); COLOR,URINE YELLOW (YELLOW); GLUCOSE,URINE NEGATIVE (NEGATIVE); KETONES,URINE NEGATIVE (NEGATIVE); LEUKOCYTE ESTERASE ,URINE NEGATIVE (NEGATIVE); NITRITE, URINE NEGATIVE (NEGATIVE); PROTEIN URINE 1+ (NEGATIVE); UROBILINOGEN,URINE 0.2 (0.2-1.0)
[2022-05-17 02:52] LABS: BACTERIA,URINE RARE /HPF (None Seen); HYALINE CASTS, URINE 0-10 /LPF (None Seen); RBC,URINE 0-3 /HPF (0-3); WBC,URINE 0-3 /HPF (0-3)
[2022-05-17] MEDS ORDERED: FUROSEMIDE 20 MG/2 ML VIAL IVP ONE ×3 (03:45→12:45)
[2022-05-17] MEDS ORDERED: FUROSEMIDE 20 MG/2 ML VIAL ONE (03:47)
--- NOTE | 2022-05-17 04:07 | NUR ---
Pt placed on bedside commode
--- NOTE | 2022-05-17 04:19 | NUR ---
Pt assisted back onto bed from commode at this time. Urine disposed of. Straw in color.
--- NOTE | 2022-05-17 04:55 | NUR ---
Called Tele floor for bed. Informed that no beds are available at this time. Pt remains in ER bed 03, NAD, VSS.
--- NOTE | 2022-05-17 04:55 | NUR ---
Admit bed requested Patient will be admitted to care of . Admitted to Tele unit. Diagnosis CHF, Dizziness Inpatient Yes Observation No Orientation concerns or request close to nursing station Yes Covid Status No On vent or bipap No Isolation requirements No Needs a sitter No From Home Yes Requires Dialysis No Med Rec Completed Yes
--- NOTE | 2022-05-17 04:57 | NUR ---
Pt assisted onto bedside commode at this time
--- NOTE | 2022-05-17 05:04 | NUR ---
Pt assisted back into bed at this time from commode.
--- NOTE | 2022-05-17 07:15 | NUR ---
Assumed care of patient. Received report from Flip MCKINNEY. Pt yelling for assistance to use restroom. Pt denied dizziness. Assisted to bedside commode without complication. Alert and oriented. VSS on secured entrance monitor. Awaiting tele bed. Aware she has been admitted; understanding verbalized.
--- NOTE | 2022-05-17 08:58 | NUR ---
Pt sitting upright in bed 3 with side rails up; educated to ask for assistance prior to getting out of bed. Pt eating cardiac tray comfortably.
[2022-05-17] MEDS: CARVEDILOL 6.25 MG TABLET (COREG) PO SCH ×2 (09:00→21:05)
[2022-05-17] MEDS: DILTIAZEM HCL 30 MG TABLET PO SCH ×2 (09:00→21:06)
[2022-05-17] MEDS ORDERED: APIXABAN 2.5 MG TABLET PO SCH (09:00)
[2022-05-17] MEDS: MEMANTINE HCL 5 MG TABLET PO SCH ×2 (09:20→21:06)
[2022-05-17] MEDS: LEVOTHYROXINE SODIUM 0.05 MG TABLET PO SCH (09:20)
[2022-05-17] MEDS ORDERED: ALENDRONATE SODIUM 10 MG TABLET (FOSAMAX) PO SCH (09:30)
--- NOTE | 2022-05-17 09:48 | NUR ---
Echocardiogram being done at bedside.
--- NOTE | 2022-05-17 12:49 | NUR ---
Pt resting in bed at this time. 0930 Lasix dose added to eMAR later than scheduled time per admitting MD. 1245 Lasix dose refused per patient; stated "That is not my doctor." Pt continues to await tele bed. VSS on telemetry monitor.
--- NOTE | 2022-05-17 13:35 | NUR ---
Informed Dr Stockton of eMAR not showing initial dose of Lasix and pt refusing second one time dosage. No no new orders received.
--- NOTE | 2022-05-17 15:30 | NUR ---
Pt transported to [facility] via [facility] with RN. Report given at bedside.
--- NOTE | 2022-05-17 15:35 | NUR ---
CARDIOLOGY CONSULT, DR ORTIZ IS AWARE.
--- NOTE | 2022-05-17 15:36 | NUR ---
CONSULTATION PAGED/CALLED Reason for Consultation: [] DIZZINESS Person Who was Notified: [] Mehrdad ROY Consulting Physician: [] DR Mehrdad BURK Rn [facility]: [] NEURO Ordering Physician: [] DR MCKENNA
[2022-05-17 15:45] VITALS: BP_SYST 143
--- NOTE | 2022-05-17 15:45 | NUR ---
RECEIVED PT FROM ER, RN. PT IS AAOX3 CONFUSED AT TIMES. VERBALLY RESPONSIVE, ABLE TO FOLLOW COMMANDS AND MAKE NEEDS KNOWN. TELE MONITOR IN PLACE READING AFIB, HR 78. PT DENIES C/P, PRESSURE AND PALPITATIONS. RESP E/U. ON R/A. NO COUGH OR SOB. ABDOMEN SOFT, NONTENDER, NONDISTENDED. BOWEL SOUNDS ACTIVE X4. DENIES N/V/D/C. SKIN WARM, INTACT, DISTAL PULSES NORMAL. PT HAS IV CATH TO RAC S/L, SITE WNL, DRESSING CDI. DENIES PAIN. PT ORIENTED TO Addendum: 05/17/22 at 1552 by [employer] handyman ROOM AND CALL LIGHT. PT HAS BLE DRYNESS.
--- NOTE | 2022-05-17 17:47 | NUR ---
PT RECEIVED P/T TRAINING WAS ABLE TO AMBULATE WITH FWW AND WALKED DOWN HALLWAY AND BACK TO BED. PT ASSISTED TO BATHROOM, VOIDS FREELY, PT SITTING UP AT BEDSIDE AT THIS TIME EATING DINNER. DENIES C/P, DIZZINESS AND PAIN IN GENERAL. CALL LIGHT WITHIN REACH.
[2022-05-17] MEDS: FUROSEMIDE 20 MG/2 ML VIAL IVP SCH (18:29)
--- NOTE | 2022-05-17 19:30 | NUR ---
ENDORSED ALL CARE TO FAYE HERRON. ALL QUESTIONS AND CONCERNS ADDRESSED.
[2022-05-17 20:00] VITALS: BP_SYST 144
[2022-05-17] MEDS ORDERED: FUROSEMIDE 20 MG/2 ML VIAL IVP SCH (21:00)
[2022-05-17] MEDS: CHOLECALCIFEROL (VITAMIN D3) 2,000 UNIT TABLET PO SCH (21:05)
[2022-05-17] MEDS: POTASSIUM CHLORIDE 20 MEQ TAB.PRT.SR PO SCH (21:06)
[2022-05-17] MEDS: DONEPEZIL HCL 5 MG TABLET (ARICEPT) PO SCH (21:06)
[2022-05-17] MEDS: APIXABAN 2.5 MG TABLET PO SCH (21:07)
[2022-05-18 00:27] VITALS: BP_SYST 118
[2022-05-18 07:00] LABS: BASOPHILS % (AUTO) 1.3 % (0.0-2.0); EOSINOPHILS # (AUTO) 0.2 K/uL (0.0-0.4); EOSINOPHILS % (AUTO) 6.7 % (0.0-4.0); HEMATOCRIT 33.7 % (36-48); HEMOGLOBIN 11.3 g/dL (12.0-16.0); LYMPHOCYTES # (AUTO) 0.9 K/uL (1.0-5.5); LYMPHOCYTES % (AUTO) 25.6 % (20.5-51.5); MEAN CORPUSCULAR HEMOGLOBIN 32 pg (27-31); MEAN CORPUSCULAR HGB CONC 33 % (32-36); MEAN CORPUSCULAR VOLUME 97 fL (79.0-98.0); MONOCYTES # (AUTO) 0.5 K/uL (0.0-1.0); MONOCYTES % (AUTO) 13.2 % (1.7-9.3); NEUTROPHILS # (AUTO) 1.8 K/uL (1.8-7.7); NEUTROPHILS % (AUTO) 53.2 % (40.0-70.0); PLATELET COUNT (AUTO) 96 K/uL (130-430); RED BLOOD CELL COUNT(AUTO) 3.49 MIL/uL (4.2-6.2); RED CELL DISTRIBUTION WIDTH 14.4 % (9.0-15.0); WHITE BLOOD COUNT (AUTO) 3.4 K/uL (4.8-10.8)
[2022-05-18 07:32] LABS: ALANINE AMINOTRANSFERASE 12 U/L (12-78); ALBUMIN 2.9 g/dL (3.4-4.8); ANION GAP 10 (5-15); ASPARTATE AMINOTRANSFERASE 40 U/L (10-37); CALCIUM 7.8 mg/dL (8.4-11.0); CHLORIDE 108 mmol/L (98-107); GLUCOSE 90 mg/dL (70-99); POTASSIUM 3.2 mmol/L (3.5-5.1); SODIUM SERUM 145 mmol/L (136-145); THYROID STIMULATING HORMONE 4.75 uIu/mL (0.36-3.74); TOTAL BILIRUBIN 0.7 mg/dL (0.0-1.0); UREA NITROGEN, BLOOD 21 mg/dL (8-21)
--- NOTE | 2022-05-18 07:54 | NUR ---
OPENING NOTE REPORT RCVD BEDSIDE FROM OUTGOING NOC RN, ALL CARES ASSUMED.
[2022-05-18] MEDS ORDERED: POTASSIUM CHLORIDE 20 MEQ/PKT PACKET PO ONE ×2 (08:30→13:15)
--- NOTE | 2022-05-18 08:32 | NUR ---
DR. BURK MAKING ROUNDS, VERBAL REPORT GIVEN AT BEDSIDE, NEW ORDER RCVD FOR PO K+ IN PERSON, ORDER PLACED.
[2022-05-18] MEDS: LIDOCAINE PATCH 5% 1 EA TP SCH (09:00)
[2022-05-18] MEDS: CHOLECALCIFEROL (VITAMIN D3) 2,000 UNIT TABLET PO SCH ×2 (09:14→21:03)
[2022-05-18] MEDS: MULTIVITS,CA,MINERALS/IRON/FA 1 TABLET PO SCH (09:14)
[2022-05-18] MEDS: DILTIAZEM HCL 30 MG TABLET PO SCH ×2 (09:15→21:03)
[2022-05-18] MEDS: MEMANTINE HCL 5 MG TABLET PO SCH ×2 (09:15→21:03)
[2022-05-18] MEDS: LEVOTHYROXINE SODIUM 0.05 MG TABLET PO SCH (09:15)
[2022-05-18] MEDS: POTASSIUM CHLORIDE 20 MEQ TAB.PRT.SR PO SCH ×2 (09:15→21:03)
[2022-05-18] MEDS: CARVEDILOL 6.25 MG TABLET (COREG) PO SCH ×2 (09:16→21:00)
[2022-05-18] MEDS: APIXABAN 2.5 MG TABLET PO SCH ×2 (09:17→21:13)
[2022-05-18] MEDS: FUROSEMIDE 20 MG/2 ML VIAL IVP SCH ×2 (09:19→18:00)
--- NOTE | 2022-05-18 10:00 | NUR ---
PRIMARY MAKING ROUNDS, BEDSIDE REPORT GIVEN.
--- NOTE | 2022-05-18 12:00 | NUR ---
50% OF LUNCH CONSUMED
[2022-05-18 12:45] VITALS: BP_SYST 128
--- NOTE | 2022-05-18 14:00 | NUR ---
RN ROUNDS, ASSISTED PATIENT TO RESTROOM, PATIENT STEADY WITH USE OF WALKER.
--- NOTE | 2022-05-18 14:42 | NUR ---
CM: REY/Gabriel # [phone] made aware of possible dc pt back home with home health tomorrow per dr. Stockton's order. DCP: Dispo code 06. Addendum: 05/18/22 at 1507 by Devika Velasco RN Faxed the referral to [facility] jovnay Jara cell # [phone], fax # [phone]. HH agency per dtr's preference. Addendum: 05/18/22 at 1706 by Devika Velasco RN Called back from [facility], the pt is accepted. She will call family to schedule nursing visit once the pt is at home.
--- NOTE | 2022-05-18 15:08 | NUR ---
DCP: Dispo code 06.
--- NOTE | 2022-05-18 16:00 | NUR ---
PATIENT ASLEEP IN NO ACUTE DISTRESS AND OR DISCOMFORT.
[2022-05-18 16:47] VITALS: BP_SYST 130
--- NOTE | 2022-05-18 17:30 | NUR ---
DINNER TRAY BROUGHT TO ROOM, PATIENT CALM AND IN NO ACUTE DISTRESS, BED LOW AND LOCKED FOR SAFETY WITH CALL LIGHT IN REACH.
--- NOTE | 2022-05-18 18:03 | NUR ---
PATIENT REFUSED IVP LASIX
--- NOTE | 2022-05-18 18:55 | NUR ---
CLOSING NOTE: REPORT GIVEN TO INCOMING NOC RN, ALL CARES ENDORSED.
[2022-05-18 20:53] VITALS: BP_SYST 114
[2022-05-18] MEDS: DONEPEZIL HCL 5 MG TABLET (ARICEPT) PO SCH (21:03)
[2022-05-19 00:53] VITALS: BP_SYST 128
[2022-05-19] MEDS ORDERED: LEVOTHYROXINE SODIUM 0.05 MG TABLET PO SCH (07:00)
--- NOTE | 2022-05-19 07:15 | NUR ---
OPENING NOTE REPORT RCVD BEDSIDE FROM OUTGOING NOC RN, ALL CARES ASSUMED.
[2022-05-19 08:00] VITALS: BP_SYST 131
[2022-05-19 08:00] LABS: ANION GAP 8 (5-15); CALCIUM 7.7 mg/dL (8.4-11.0); CHLORIDE 110 mmol/L (98-107); GLUCOSE 81 mg/dL (70-99); POTASSIUM 4.1 mmol/L (3.5-5.1); SODIUM SERUM 144 mmol/L (136-145); UREA NITROGEN, BLOOD 21 mg/dL (8-21)
[2022-05-19] MEDS: DILTIAZEM HCL 30 MG TABLET PO SCH (08:14)
[2022-05-19] MEDS: CHOLECALCIFEROL (VITAMIN D3) 2,000 UNIT TABLET PO SCH (08:14)
[2022-05-19] MEDS: MEMANTINE HCL 5 MG TABLET PO SCH (08:14)
[2022-05-19] MEDS: MULTIVITS,CA,MINERALS/IRON/FA 1 TABLET PO SCH (08:14)
[2022-05-19] MEDS: POTASSIUM CHLORIDE 20 MEQ TAB.PRT.SR PO SCH (08:14)
[2022-05-19] MEDS: FUROSEMIDE 20 MG/2 ML VIAL IVP SCH (08:14)
[2022-05-19] MEDS: APIXABAN 2.5 MG TABLET PO SCH (08:15)
[2022-05-19] MEDS: LIDOCAINE PATCH 5% 1 EA TP SCH (08:16)
[2022-05-19] MEDS: CARVEDILOL 6.25 MG TABLET (COREG) PO SCH (08:18)
--- NOTE | 2022-05-19 09:30 | NUR ---
RN ROUNDS ASSISTED PATIENT TO RESTROOM WITH USE OF WALKER. PATIENT IS WEAK AND FALL RISK, ASSISTED PATIENT WITH ORAL CARE AND BACK TO BED.
[2022-05-19 09:31] LABS: BASOPHILS % (AUTO) 1.1 % (0.0-2.0); EOSINOPHILS # (AUTO) 0.3 K/uL (0.0-0.4); EOSINOPHILS % (AUTO) 6.9 % (0.0-4.0); HEMATOCRIT 32.5 % (36-48); HEMOGLOBIN 10.7 g/dL (12.0-16.0); LYMPHOCYTES # (AUTO) 0.9 K/uL (1.0-5.5); LYMPHOCYTES % (AUTO) 23.1 % (20.5-51.5); MEAN CORPUSCULAR HEMOGLOBIN 32 pg (27-31); MEAN CORPUSCULAR HGB CONC 33 % (32-36); MEAN CORPUSCULAR VOLUME 97 fL (79.0-98.0); MONOCYTES # (AUTO) 0.6 K/uL (0.0-1.0); MONOCYTES % (AUTO) 14.8 % (1.7-9.3); NEUTROPHILS # (AUTO) 2.2 K/uL (1.8-7.7); NEUTROPHILS % (AUTO) 54.1 % (40.0-70.0); PLATELET COUNT (AUTO) 100 K/uL (130-430); RED BLOOD CELL COUNT(AUTO) 3.34 MIL/uL (4.2-6.2); RED CELL DISTRIBUTION WIDTH 14.7 % (9.0-15.0)
--- NOTE | 2022-05-19 11:52 | NUR ---
DR. MCKENNA MAKING ROUNDS, BEDSIDE REPORT GIVEN. TO REVIEW CHART.
[2022-05-19 12:00] VITALS: BP_SYST 141
--- NOTE | 2022-05-19 12:30 | NUR ---
DISCHARGE ORDER PLACED
--- NOTE | 2022-05-19 13:00 | NUR ---
PATIENT MADE AWARE OF DISCHARGE, PATIENT EXPRESSED FOR NURSING TO NOTIFY DAUGHTER. WILL CONTACT DAUGHTER.
--- NOTE | 2022-05-19 14:00 | NUR ---
CALLED DAUGHTER WITH INFORMATION FROM FACE SHEET.
[2022-05-19 15:40] VITALS: BP_SYST 121
--- NOTE | 2022-05-19 15:51 | NUR ---
DAUGHTER RETURNED CALL, DAUGHTER AWARE OF DISCHARGE AND WILL COUNTER FORMER PATIENT AT 1700.
[2022-05-19 16:00] VITALS: BP_SYST 133
--- NOTE | 2022-05-19 17:00 | NUR ---
D/C Patient Patient given medication reconciliation form and D/C instructions. Exit Care provided. Patient verbalized understanding. MD discussed with patient the results and treatment provided. Ambulatory with steady gait for discharge to home. Patient in stable condition, ID band removed. IV catheter removed, intact and dressing applied, no active bleeding.Patient educated on pain management. All belongings sent with patient.
== END 2022-05-19 17:00 | disposition home health service (06) | DRG 291 ==
LOC: SED 23:04 → STU 05-17 02:53
PROVIDERS: ADMIT Internal Medicine; ATTEND Internal Medicine
DX: I11.0 Hypertensive heart disease with heart failure (principal); I50.43 Acute on chronic combined systolic (congestive) and diastolic (congestive) heart failure; N17.0 Acute kidney failure with tubular necrosis; K85.90 Acute pancreatitis without necrosis or infection, unspecified; E44.0 Moderate protein-calorie malnutrition; D61.818 Other pancytopenia; D68.69 Other thrombophilia; M48.56XA Collapsed vertebra, not elsewhere classified, lumbar region, initial encounter for fracture; L03.116 Cellulitis of left lower limb; L03.115 Cellulitis of right lower limb; I48.20 Chronic atrial fibrillation, unspecified; E87.6 Hypokalemia; Z20.822 Contact with and (suspected) exposure to COVID-19; I48.0 Paroxysmal atrial fibrillation; I08.1 Rheumatic disorders of both mitral and tricuspid valves; F03.90 Unspecified dementia, unspecified severity, without behavioral disturbance, psychotic disturbance, mood disturbance, and anxiety; E03.9 Hypothyroidism, unspecified; I25.10 Atherosclerotic heart disease of native coronary artery without angina pectoris; D64.9 Anemia, unspecified; M81.0 Age-related osteoporosis without current pathological fracture; M41.9 Scoliosis, unspecified; Z68.22 Body mass index [BMI] 22.0-22.9, adult; Z79.899 Other long term (current) drug therapy; Z95.0 Presence of cardiac pacemaker; Z90.49 Acquired absence of other specified parts of digestive tract
CPT/HCPCS: 36415; 70450-TC; 71045; 76376; 80048; 80053; 81000; 83735; 83880; 84443; 84484; 85025; 85610-TC; 85730-TC; 93005; 93306; 93880; 96374; 97116-GP; 97161-GP; 99285; G0378; G0482; J1940